=== PATIENT | male | born 1965 | race Caucasian/White ===

== ENCOUNTER 2018-03-07 09:59 | Day surgery (SDC) | payer BC, MEDICARE ==
[2018-03-05 10:32] VITALS: BMI 27.3
[~2018-03-07 09:59] MED LIST: DEXAMETHASONE SOD PHOSPHATE 10 MG/ML 1 ML VIAL IV ONE; LACTATED RINGERS 1,000 ML IV SCH; MORPHINE SULFATE 4 MG/0.8 ML SYRINGE (INJ) IV PRN; ONDANSETRON ODT 4 MG TAB PO ONE
[2018-03-07 11:30] VITALS: RESP 16; TEMP 97.9
[2018-03-07] MEDS ORDERED: LIDOCAINE 1% 20 ML VIAL (10MG/ML) FOR IV START INTRADERMA ONE (11:44)
[2018-03-07] MEDS ORDERED: PROPOFOL 10 MG/ML 20 ML VIAL IV ONE (12:06)
[2018-03-07] MEDS ORDERED: LIDOCAINE 1% INJ 10MG/ML (20 ML MDV) ONE (12:06)
--- NOTE | 2018-03-07 12:14 | P.GSHP ---
History of Present Illness H&P Date: 03/07/18 Chief Complaint: Screen colonoscopy, history of colon cancer This a 52-year-old male who presents today for colonoscopy. He's has history of previous colon cancer. He denies a significant GI complaints. Past Medical History Past Medical History: Cancer, Eye Disorder Additional Past Medical History / Comment(s): HX COLON CA@ AGE 45;SPINAL MENIGITIS 2000, LIGHTHEADED AT TIMES,HX ACUTE BRACHIAL PLEXIS NEURITIS-HURTS ALL OVER-EVERY JOINT- STATES LEGS ARE STARTING TO GET SMALLER & HARD TO WALK FAR -NEUROPATHY, History of Any Multi-Drug Resistant Organisms: None Reported Past Surgical History: Back Surgery, Bowel Resection Additional Past Surgical History / Comment(s): HAD BOWEL RESECTION AND AN ILEOSTOMY, THEN A REVERSAL DONE, COLONOSCOPIES Past Anesthesia/Blood Transfusion Reactions: No Reported Reaction Smoking Status: Current every day smoker - Past Family History Mother Family Medical History: Cancer Additional Family Medical History / Comment(s): OF STOMACH CA 2013 Father Family Medical History: Cancer Additional Family Medical History / Comment(s): PROSTATE CA Medications and Allergies Home Medications Medication Instructions Recorded Confirmed Type ALPRAZolam [Xanax] 0.5 mg PO BID PRN 07/30/15 03/05/18 History Gabapentin [Neurontin] 300 mg PO BID 07/30/15 03/05/18 History Multivitamins, Thera [Theragran] 1 each PO DAILY 07/30/15 03/05/18 History oxyCODONE-APAP 10-325MG [Percocet 1 each PO TID 07/30/15 03/05/18 History 10-325] Allergies Allergy/AdvReac Type Severity Reaction Status Date / Time No Known Allergies Allergy Verified 03/07/18 11:25 Surgical - Exam Vital Signs Temp Pulse Resp BP Pulse Ox 97.9 F 62 16 132/80 96 03/07/18 11:28 03/07/18 11:28 03/07/18 11:28 03/07/18 11:28 03/07/18 11:28 - General well developed, well nourished - Eyes PERRL - ENT normal pinna - Neck no masses - Respiratory normal expansion - Cardiovascular Rhythm: regular - Abdomen Abdomen: soft, non tender Assessment and Plan Assessment: History of colonic Cancer. We'll perform colonoscopy.
--- NOTE | 2018-03-07 12:25 | P.OP ---
Date of Procedure: 03/07/18 Preoperative Diagnosis: Screening colonoscopy History of colonic Cancer Postoperative Diagnosis: Normal colonoscopy status post low anterior section Procedure(s) Performed: Colonoscopy Anesthesia: MAC Surgeon: Fritz Anne Pathology: none sent Condition: stable Disposition: PACU Description of Procedure: PROCEDURE: The patient was placed on the endoscopy table in the lateral position. Digital rectal examination was performed which revealed no abnormalities. The prostate was symmetrical without nodules. Flexible colonoscope was then placed in the patient's anus and passed throughout the entire colon. The ileocecal valve was visualized. The cecum, ascending, transverse, descending and sigmoid colon were normal. The scope was then withdrawn and a colorectal anastomosis was visualized proximal me 8 cm from the verge. There is some mild stenosis of the anastomosis. There is known evidence of recurrent tumors. Scope was withdrawn for patient.
[2018-03-07 12:45] VITALS: BP 123/83; PULSE 57
== END 2018-03-07 13:08 | disposition home or self-care (01) ==
LOC: ORWHC2ENDO 09:59
PROVIDERS: ATTEND Surgery
DX: Z12.11 Encounter for screening for malignant neoplasm of colon (principal); G62.9 Polyneuropathy, unspecified; F17.210 Nicotine dependence, cigarettes, uncomplicated; Z90.49 Acquired absence of other specified parts of digestive tract; Z98.0 Intestinal bypass and anastomosis status; Z85.038 Personal history of other malignant neoplasm of large intestine; Z79.891 Long term (current) use of opiate analgesic; Z79.899 Other long term (current) drug therapy; Z93.2 Ileostomy status
CPT/HCPCS: J2001; J2704; G0105; 45378

== ENCOUNTER → 2019-02-08 | Outpatient (CLI) | payer MEDICARE ==
--- NOTE | 2019-02-08 14:09 | MR ---
MRI CERVICAL SPINE: CLINICAL HISTORY: Cervical region radiculopathy. Weakness for 6 months. TECHNIQUE: Multiplanar, multisequence imaging of the cervical spine is performed without and with IV contrast, 7.5 cc of gadolinium was given intravenously. COMPARISON: None. FINDINGS: Sagittal images of the cervical spine show the craniocervical junction to appear within nor mal limits. The cervical and upper thoracic spinal cord is normal in course, caliber, and signal. Th ere is grade 1 retrolisthesis of C5 on C6 measure approximately 4 mm from posterior vertebral body ma rgin. The vertebral body heights are normal. [id number] disc space narrowing C5-C6 level is pr esent. There is small hemangioma involving posterior T1 vertebra. No suspicious enhancement is seen. There is 1.6 cm mucous retention cyst or polyp in the inferior right maxillary sinus sagittal image 1 4. Axial images show the C2-C3 level to appear within normal limits. Axial images at C3-C4 level show uncovertebral facet spurring causing mild bilateral neural foraminal narrowing. Axial images at C4-C5 level shows uncovertebral facet spurring causing moderate right and mild left-s ided neural foraminal narrowing. Tiny central disc protrusion mildly effaces the anterior thecal sac on axial image 32. Axial images at C5-C6 level show spondylolisthesis with broad-based left paracentral disc protrusion effacing the anterior thecal sac and causing moderate to advanced bilateral neural foraminal narrowin g. Axial images at C6-C7 level shows central disc protrusion mildly effacing the anterior thecal sac, bi lateral neural foramina are patent. Axial images at C7-T1 level are felt within normal limits. Thyroid gland is felt unremarkable. IMPRESSION: Multilevel degenerative changes of cervical spine as detailed above, attention to C5-C6 l evel where spondylolisthesis is present and degenerative changes are most prominent.
== END | disposition home or self-care (01) ==
LOC: RADMRIMAIN 13:12
PROVIDERS: ATTEND Psychiatry & Neurology Neurology
DX: M47.22 Other spondylosis with radiculopathy, cervical region (principal); M43.12 Spondylolisthesis, cervical region
CPT/HCPCS: 72156; A9585

== ENCOUNTER → 2019-11-04 | Outpatient (CLI) | payer MEDICARE ==
--- NOTE | 2019-11-04 23:27 | MR ---
EXAMINATION TYPE: MR lumbar spine wo/w con DATE OF EXAM: 11/04/2019 COMPARISON: None HISTORY: LBP, RLE radic, difficulty walking, hx surgery 1996 CONTRAST: Standard multiplanar, multisequence MRI departmental protocol utilizing 7.5 mL intravenous Gadavist g adolinium contrast. Lumbar vertebra have normal alignment. There is some degenerative disc space narrowing at L4-5 L5-S1. There is posterior mild disc herniation from L2 to L5. There is narrowing of the neural foramina joshua aterally at L3-4 and L4-5 due to facet arthropathy and disc bulging. There is no compression fracture . There is left side L4 laminectomy defect. Sacroiliac joints appear intact. There is no lumbar paraspinal mass. Contrast images show some epidural enhancement involving the L4-5 disc. There is probably some signif icant epidural scarring at L4-5 at the posterior aspect of the L4-5 disc. IMPRESSION: Spondylotic changes with multilevel mild posterior disc herniations. This is larger at L4-5. Mild dewayne ral foraminal stenosis. No fracture. No significant spinal canal stenosis. There is moderate epidural scarring enhancement seen in the epidural tissues at the L4-5 disc.
== END | disposition home or self-care (01) ==
LOC: RADMRIMAIN 21:40
PROVIDERS: ATTEND Neurological Surgery
DX: M48.061 Spinal stenosis, lumbar region without neurogenic claudication (principal); M51.26 Other intervertebral disc displacement, lumbar region; M47.816 Spondylosis without myelopathy or radiculopathy, lumbar region; G96.19 Other disorders of meninges, not elsewhere classified
CPT/HCPCS: 72158; A9585

== ENCOUNTER → 2019-12-11 | Outpatient (CLI) | payer MEDICARE ==
--- NOTE | 2019-12-11 22:30 | MR ---
EXAMINATION TYPE: MR brain wo/w con DATE OF EXAM: 12/11/2019 COMPARISON: NONE HISTORY: 54-year-old male with dizziness and giddiness TECHNIQUE: Multiplanar, multisequence images of the brain and brainstem were acquired before and aft er administration of 7.5 mL IV Gadavist. Diffusion weighted imaging is performed. FINDINGS: No evidence for acute infarction, hemorrhage, midline shift shift, herniation, effacement of basal ci sterns, or extra-axial fluid collection. The ventricles and sulci are age-appropriate. There is a 9 mm cyst along the right paramedian region just in front of the anterior commissure exten ding into the right basal ganglia. No enhancing component is seen. Major intracranial flow voids are intact. T2/FLAIR weighted sequences show no white matter signal abnormality. There is a cystic-appearing, T2 bright and T1 dark, nonenhancing by 6 mm round lesion of the posterio r pituitary gland. Possible small 4 mm hypoenhancing portion of the anterior pituitary gland, referre d to postcontrast axial image 12 and postcontrast sagittal image 78. Otherwise, midline structures demonstrate normal morphology. The craniocervical junction is normal. Post contrast images demonstrate no other evidence of pathologic enhancement. Dural venous sinuses a re patent. Moderate mucosal thickening left ethmoid air cells and mild within the maxillary sinuses and right et hmoid air cells. There is also a 1.8 cm mucosal retention cyst floor of the right maxillary sinus. IMPRESSION: 1. A 9 mm cyst along the right paramedian region just in front of the anterior commissure extending i nto the right basal ganglia. The exact etiology is unclear. No internal complexity or enhancing compo nents. Possible small neuroglial or ependymal cyst. Six-month follow-up recommended to reassess. 2. 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 However, there is a po ssible 4 mm hypoenhancing lesion within the anterior pituitary. A pituitary microadenoma is difficult to exclude. Appropriate laboratory correlation is recommended. Pituitary MRI can provide more detail ed assessment. 3. Moderate chronic left ethmoid sinus disease and mild chronic maxillary and right ethmoid sinus dis ease. 4. No acute intracranial abnormality seen.
== END | disposition home or self-care (01) ==
LOC: RADMRIMAIN 13:47
PROVIDERS: ATTEND Family Medicine
DX: G93.0 Cerebral cysts (principal); E23.6 Other disorders of pituitary gland; J32.0 Chronic maxillary sinusitis; J32.2 Chronic ethmoidal sinusitis
CPT/HCPCS: 70553; A9585

== ENCOUNTER → 2020-01-20 | Outpatient (CLI) | payer MEDICARE ==
--- NOTE | 2020-01-20 21:03 | MR ---
EXAMINATION TYPE: MR thoracic spine wo con DATE OF EXAM: 01/20/2020 COMPARISON: Whole body CT October 23, 2013. HISTORY: Gait instability per order. History of back surgery with difficulty walking for a few years per patient. TECHNIQUE: Multiplanar, multisequence imaging of thoracic spine is performed without contrast FINDINGS: Sagittal T2, and images shows artifact from surgical hardware C5-C6 levels.. Spinal cord s hows normal course, caliber, and signal as it courses the thoracic spine. Vertebral body heights and alignment are satisfactory. Mild multilevel disc space narrowing mid to lower thoracic spine with mi ld to moderate multilevel anterior and lateral spurring. There is subcentimeter round lesion involvin g the posterior T8 vertebra sagittal image 8 presumed nonaggressive. There are posterior disc herniat ions effacing the anterior thecal sac at T6-T7 and T7-T8 level sagittal image 8 along with tiny poste rior disc herniations T10-T11, T11-T12, and T12-L1 level sagittal image 8. Small posterior hemangioma T1 vertebra sagittal image 7. Review of axial images shows left foraminal disc herniation causing asymmetric mild to moderate infer ior neural foraminal narrowing at T2-T3 level sagittal images 4 and 5. Similar finding noted T3-T4 le angela axial image 14 and T4-T5 level axial image 8. With prominent disc herniations are confirmed to T6 -T7 and T7-T8 levels on axial images effacing the bilateral anterolateral thecal sac. There are uncov ertebral facet degenerative changes and ligament flavum hypertrophy pacing posterior lateral thecal s ac bilaterally in the lower thoracic spine. Visualized thorax and upper abdomen show no additional schaffer spicious abnormality. IMPRESSION: Multilevel okgo-iq-[id number] degenerative changes as detailed above.
== END | disposition home or self-care (01) ==
LOC: RADMRIMAIN 19:41
PROVIDERS: ATTEND Neurological Surgery
DX: M47.814 Spondylosis without myelopathy or radiculopathy, thoracic region (principal)
CPT/HCPCS: 72146

== ENCOUNTER → 2020-10-19 | Outpatient (CLI) | payer MEDICARE ==
--- NOTE | 2020-10-20 08:32 | MR ---
EXAMINATION TYPE: MR liver wo/w con DATE OF EXAM: 10/19/2020 COMPARISON: Most recent CT August 23, 2013 HISTORY: LIVER DISEASE, history of colon cancer. CONTRAST: Standard multiplanar, multisequence MRI departmental protocol utilizing 7.5 mL intravenous Gadavis t gadolinium contrast. Imaging is performed of the abdomen focusing on the liver. FINDINGS: Liver: Liver remains overall normal in size. Stable 6 mm punctate thin-walled cyst posterior right he patic lobe axial image 19 series 601. There are roughly 3-4 additional subcentimeter thin-walled cyst s scattered throughout the liver. In the posterior right hepatic lobe. 9 mm round T2 hyperintense les ion seen breast series 701 image 39, dynamic postcontrast images show initial peripheral rim-type enh ancement with more central heterogeneous enhancement on delayed images. No surrounding ascites. Paten t portal vein. Patent hepatic veins draining into IVC. Gallbladder within normal limits. No biliary d ilatation. Other: Lung bases remain grossly clear. The spleen, pancreas, and both adrenal glands remain within n ormal limits. No concerning renal mass or hydronephrosis seen bilaterally. No suspicious small or lar ge bowel dilatation. Susceptibility artifact from metallic anterior left mid abdominal soft tissue fo reign body near skin surface noted axial image 1 series 404. No intra-abdominal ascites. No aortic an eurysm. Osseous structures are intact IMPRESSION: A few tiny subcentimeter thin-walled cysts scattered throughout the liver. There is 9 mm enhancing lesion posterior right hepatic lobe superior segment not clearly identified on 2013 CT, too small to further characterize, dynamic postcontrast imaging is not consistent with metastatic diseas e, favor benign hemangioma. Short-term contrast-enhanced liver protocol follow-up MRI in 6-12 months time is advised to reassess in high risk patient with history of colon cancer.
== END | disposition home or self-care (01) ==
LOC: RADMRIMAIN 12:49
PROVIDERS: ATTEND Family Medicine
DX: K76.89 Other specified diseases of liver (principal); Z85.038 Personal history of other malignant neoplasm of large intestine
CPT/HCPCS: 74183; A9585

== ENCOUNTER → 2021-01-29 | Outpatient (CLI) | payer MEDICARE ==
--- NOTE | 2021-01-29 15:36 | XR ---
EXAMINATION TYPE: XR skull complete DATE OF EXAM: 01/29/2021 COMPARISON: NONE HISTORY: Pre-MRI clearance. Possible metallic foreign body. TECHNIQUE: 4 views of the skull. FINDINGS: No suspicious metallic intracranial foreign body seen to prevent MRI. IMPRESSION: As above.
--- NOTE | 2021-01-30 03:57 | MR ---
EXAMINATION TYPE: MR cervical spine wo con DATE OF EXAM: 01/29/2021 COMPARISON: 02/08/2019 HISTORY: Can't walk, dizzy, electrical feeling, pain for 2 years down both arms to fingers. Multiplanar multiecho imaging of the cervical spine was performed with no contrast. Lumbar vertebra have normal alignment. There is anterior fusion surgery with metal artifact at C5-6. The disc spaces are fairly normal. There is no spinal stenosis. Cervical spinal cord appears normal. There is no edema. Brainstem appears intact. Facet joints are intact. There is no evidence of cervica l paraspinal mass. IMPRESSION: Anterior fusion surgery. No spinal stenosis or cervical disc herniation. No fracture. No complicating process seen. No adverse change compared to old exam.
== END ==
LOC: RADMRIMAIN 14:44
PROVIDERS: ATTEND Student in an Organized Health Care Education/Training Program
DX: Z98.1 Arthrodesis status (principal); S00.85XA Superficial foreign body of other part of head, initial encounter
CPT/HCPCS: 70260; 72141

== ENCOUNTER → 2021-02-09 | Outpatient (CLI) | payer MEDICARE ==
--- NOTE | 2021-02-10 14:24 | P.ARTDOP ---
Arterial Doppler LOWER EXTREMITY ARTERIAL DOPPLER: DATE OF SERVICE: 02/09/2021: Reason for study: Bilateral leg weakness. Doppler waveforms: Multiphasic bilaterally throughout. Pulse volume recording: []. Pressure gradients: None. Ankle-brachial indices: Greater than 1 bilaterally. Toe brachial indices: 0.68 on the right, 0.67 on the left Impression: Normal study.
== END | disposition home or self-care (01) ==
LOC: RADUSWWP 13:47
PROVIDERS: ATTEND Family Medicine
DX: M79.661 Pain in right lower leg (principal); M79.662 Pain in left lower leg
CPT/HCPCS: 93922

== ENCOUNTER → 2021-02-15 | Outpatient (CLI) | payer MEDICARE ==
--- NOTE | 2021-02-16 03:22 | MR ---
EXAMINATION TYPE: MR lumbar spine wo con DATE OF EXAM: 02/15/2021 COMPARISON: 11/04/2019 HISTORY: LBP, BLE radiculopathy, difficulty walking Multiplanar multiecho imaging of the lumbar spine was performed with no contrast. The lumbar vertebra have normal alignment. There is narrowing of the disc spaces at L4-5 and L5-S1. T here is moderate posterior disc herniation at L4-5 with disc herniation extending along the posterior aspect of L5 vertebral body. There is a posterior concentric mild disc herniation at L2-3. The lumba r neural foramina are fairly well-maintained. There is no compression fracture. There is some anterio r multilevel lumbar disc herniation from L2 to L5. The sacroiliac joints are intact. There is no para spinal mass. I see no focal bone destruction. IMPRESSION: Spondylotic changes. There is moderate posterior L4-5 lumbar disc herniation increased slightly lidia red to old exam with extruded disc material along the posterior L5 vertebral body. There is overall n ot a significant spinal stenosis. No fracture seen. L2-3 disc herniation unchanged.
== END | disposition home or self-care (01) ==
LOC: RADMRIMAIN 21:49
PROVIDERS: ATTEND Student in an Organized Health Care Education/Training Program
DX: M47.26 Other spondylosis with radiculopathy, lumbar region (principal); M51.16 Intervertebral disc disorders with radiculopathy, lumbar region
CPT/HCPCS: 72148

== ENCOUNTER → 2021-03-01 | Outpatient (CLI) | payer MEDICARE ==
--- NOTE | 2021-03-02 04:46 | MR ---
EXAMINATION TYPE: MR thoracic spine wo con DATE OF EXAM: 03/01/2021 COMPARISON: 01/20/2020 HISTORY: Difficulty walking, leg pain. Multiplanar multiecho imaging of the thoracic spine was performed without contrast. FINDINGS: Thoracic vertebra have normal alignment. There is mild spurring of the endplates anteriorly and poste riorly. There is developmentally adequate spinal canal. There is no evidence of spinal stenosis. Ther e is metal artifact from fusion surgery at C5-6. At T12-L1 on the right side there is posterior disc herniation and impingement on the lateral recess. There is developmentally adequate neural foramen. T here is no compression fracture. At T6-7 there is small posterior disc bulge on the left side. There is very slight increased signal on the T2 images within the thoracic spinal cord at the T6-7 le angela. There is no evidence of a mass. IMPRESSION: Posterior right side T12-L1 disc herniation without change. No fracture. Subtle increased signal in the cord at T6-7 seen on the sagittal images and not the axial images. It is not clear if this is a real finding. This is a change compared to old exam.
--- NOTE | 2021-03-02 04:52 | MR ---
EXAMINATION TYPE: MR brain wo con DATE OF EXAM: 03/01/2021 COMPARISON: 12/11/2019 HISTORY: Difficulty walking, leg pain. Multiplanar multiecho imaging of the brain was performed without contrast. FINDINGS: Ventricles have normal size. There is no mass effect nor midline shift. There is no sign of intracran ial hemorrhage. There is cerebral atrophy appropriate for age. The diffusion images show no evidence of an acute infarct. There is 9 mm rounded area of fluid signal adjacent to the frontal horn of the r ight lateral ventricle. This is smoothly marginated and consistent with a cyst. The brainstem is intact. Corpus callosum appears normal. Sella turcica appears normal. There is no ev idence of orbital mass. The cerebellum appears normal. There is no evidence of posterior fossa mass. Internal auditory canals appear intact. There is mild mucosal thickening in the ethmoid air cells. IMPRESSION: There is a small cyst adjacent to the frontal horn right lateral ventricle and anterior commissure wi thout change compared to old exam. No evidence of infarct. There is improvement in the sinusitis compared to old exam. No posterior fossa abnormality.
== END | disposition home or self-care (01) ==
LOC: RADMRIMAIN 20:08
PROVIDERS: ATTEND Neurological Surgery
DX: M51.25 Other intervertebral disc displacement, thoracolumbar region (principal); G93.0 Cerebral cysts
CPT/HCPCS: 70551; 72146

== ENCOUNTER 2021-12-17 20:25 | Emergency (ER) | payer MEDICARE ==
[2021-12-17] MEDS ORDERED: MORPHINE SULFATE 4 MG/ML SYRINGE IM STA ×3 (20:34→22:19)
--- NOTE | 2021-12-17 20:35 | ED ---
Lower Extremity Injury HPI - General Stated Complaint: R ankle injury Time Seen by Provider: 12/17/21 20:31 Source: RN notes reviewed Mode of arrival: EMS - History of Present Illness Initial Comments: This is a pleasant 48-year-old male presents to emergency department complaining of right ankle pain. Patient states he was walking outside to go to dinner and slipped on ice. Patient twisted his ankle in some fashion. Complaining of pain to lateral aspect ankle which radiates into the lower leg. No head or neck injury. 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 No headache, no fever or chills, no changes in vision or hearing, no sore throat or difficulty with speech, no neck pain, no chest pain or shortness of breath, no abdominal pain, no nausea or vomiting, no changes in urination or bowel movements, no numbness or tingling, no extremity pain, no skin rashes or lesions. MD Complaint: ankle injury - Related Data Home Medications Medication Instructions Recorded Confirmed ALPRAZolam [Xanax] 0.5 mg PO HS 07/30/15 12/17/21 oxyCODONE-APAP 10-325MG [Percocet 1 tab PO TID 07/30/15 12/17/21 10-325] Pregabalin [Lyrica] 300 mg PO DAILY 12/17/21 12/17/21 Temazepam [Restoril] 15 mg PO HS PRN 12/17/21 12/17/21 Allergies Allergy/AdvReac Type Severity Reaction Status Date / Time No Known Allergies Allergy Verified 12/17/21 20:40 Review of Systems ROS Statement: Those systems with pertinent positive or pertinent negative responses have been documented in the HPI. ROS Other: All systems not noted in ROS Statement are negative. Past Medical History Past Medical History: Cancer, Eye Disorder Additional Past Medical History / Comment(s): HX COLON CA@ AGE 45;SPINAL MENIGI TIS 2000, LIGHTHEADED AT TIMES,HX ACUTE BRACHIAL PLEXIS NEURITIS-HURTS ALL OVER- EVERY JOINT- STATES LEGS ARE STARTING TO GET SMALLER & HARD TO WALK FAR- NEUROPATHY, History of Any Multi-Drug Resistant Organisms: None Reported Past Surgical History: Back Surgery, Bowel Resection Additional Past Surgical History / Comment(s): HAD BOWEL RESECTION AND AN ILEOSTOMY, THEN A REVERSAL DONE, COLONOSCOPIES Past Anesthesia/Blood Transfusion Reactions: No Reported Reaction Past Psychological History: Anxiety Past Alcohol Use History: Rare Additional Past Alcohol Use History / Comment(s): SMOKER SINCE AGE 28(1992)- 2PPD Past Drug Use History: None Reported - Past Family History Mother Family Medical History: Cancer Additional Family Medical History / Comment(s): OF STOMACH CA 2013 Father Family Medical History: Cancer Additional Family Medical History / Comment(s): PROSTATE CA General Exam General appearance: alert, in distress Head exam: Present: atraumatic, normocephalic, normal inspection Eye exam: Present: normal appearance, PERRL, EOMI. Absent: scleral icterus, conjunctival injection, periorbital swelling ENT exam: Present: normal exam, mucous membranes moist Neck exam: Present: normal inspection. Absent: tenderness, meningismus, lymphadenopathy Respiratory exam: Present: normal lung sounds bilaterally. Absent: respiratory distress, wheezes, rales, rhonchi, stridor Cardiovascular Exam: Present: regular rate, normal rhythm, normal heart sounds. Absent: systolic murmur, diastolic murmur, rubs, gallop, clicks GI/Abdominal exam: Present: soft, normal bowel sounds. Absent: distended, tenderness, guarding, rebound, rigid Extremities exam: Present: normal inspection, tenderness, normal capillary refill Right Knee exam: Present: normal inspection, full ROM. Absent: tenderness Lower Leg exam: Present: tenderness. Absent: swelling, abrasion Ankle exam: Present: tenderness, swelling. Absent: normal inspection, full ROM, abrasion, laceration, ecchymosis, deformity Foot/Toe exam: Present: normal inspection, full ROM. Absent: tenderness, swelling, abrasion, laceration, deformity, crepitus, dislocation, erythema, amputation, puncture wound, foreign body, nail avulsion Neurovascular tendon exam: Present: no vascular compromise. Absent: pulse deficit, abnormal cap refill, motor deficit, sensory deficit, tendon deficit, pallor Gait: unable to bear weight Back exam: Present: normal inspection Neurological exam: Present: alert, oriented X3, CN II-XII intact Psychiatric exam: Present: normal affect, normal mood Skin exam: Present: warm, dry, intact, normal color. Absent: rash Course Vital Signs 12/17/21 12/17/21 20:37 22:28 Temperature 98.2 F Pulse Rate 66 88 Respiratory 18 18 Rate Blood Pressure 194/100 168/91 O2 Sat by Pulse 100 97 Oximetry - Reevaluation(s) Reevaluation #1: 12/17/21 22:40 Medical record is reviewed Symptoms are improved here in the emergency department Patient is informed of results and questions answered Patient in no distress Neuro Vasser status intact Case discussed with orthopedics Patient is not narcotic darlene and requires more pain medication prior to splint application. Procedures - Orthopedic Splinting/Casting Injury #1 Side: right Lower Extremity Injury Location: long leg, ankle Lower Extremity Immobilizer: posterior splint, stirrup splint, David wrap Other Orthopedic Equipment: crutches Additional Comments: Neurovascular status intact pre-and post-application. Medical Decision Making - Medical Decision Making Case discussed in detail with Dr. Landin [facility]. Patient be splinted and will follow up on Monday or Monday. The case was discussed in detail with ED attending physician. Presentation, findings, treatment plan discussed in detail. Counseled the patient on signs and symptoms of compartment syndrome. 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 Patient had good vascular status. Post-application. Patient's neurological and sensory status was at baseline. Disposition Clinical Impression: Closed traumatic nondisplaced fracture of distal end of right tibia, Traumatic closed nondisplaced fracture of distal end of right fibula Disposition: HOME SELF-CARE Condition: Stable Instructions (If sedation given, give patient instructions): Ankle Fracture (ED), Crutch Instructions (ED), Splint Care (ED) Additional Instructions: Elevated leg whenever possible. Apply ice 20 minutes on and off. Do not get the splinting material wet. No weight bearing. Use crutches as directed. Call the orthopedic office at 8 AM Monday morning. Follow-up with your regular physician as directed. Return to the ER immediately if any symptoms worsen, new symptoms arise, or any other problems develop. Is patient prescribed a controlled substance at d/c from ED?: No Referrals: Hernando Landin DO [Doctor of Osteopathic Medicine] - 12/20/21 8:00 am Time of Disposition: 23:28
[2021-12-17 20:40] VITALS: RESP 18; TEMP 98.2
--- NOTE | 2021-12-17 21:59 | XR ---
EXAMINATION TYPE: XR tibia fibula RT DATE OF EXAM: 12/17/2021 COMPARISON: NONE HISTORY: Pain TECHNIQUE: 4 views FINDINGS: There is spiral fracture distal shaft of the tibia. There is no significant displacement. T here is comminution. There is large fracture the posterior malleolus. There is nondisplaced spiral fr acture distal fibula. IMPRESSION: Acute fractures distal tibia and fibula as above including large fractured posterior mall eolus. No dislocation.
--- NOTE | 2021-12-17 22:00 | XR ---
EXAMINATION TYPE: XR foot limited RT DATE OF EXAM: 12/17/2021 COMPARISON: NONE HISTORY: Ankle pain leg pain and foot pain TECHNIQUE: 2 views FINDINGS: Metatarsals are intact. The toes appear intact. Hindfoot is intact. Fractures of distal tib ia and fibula are noted described in the tibia x-ray report. IMPRESSION: No acute abnormality of the right foot.
[2021-12-17] MEDS ORDERED: KETOROLAC 15 MG/ML 1 ML VIAL IM STA (22:19)
[2021-12-17 22:29] VITALS: PULSE 88
[2021-12-17 23:37] VITALS: BP 136/76
== END 2021-12-18 | disposition home or self-care (01) ==
LOC: EC 20:25
DX: S82.301A Unspecified fracture of lower end of right tibia, initial encounter for closed fracture (principal); S82.831A Other fracture of upper and lower end of right fibula, initial encounter for closed fracture; F41.9 Anxiety disorder, unspecified; Z79.899 Other long term (current) drug therapy; W01.0XXA Fall on same level from slipping, tripping and stumbling without subsequent striking against object, initial encounter; X50.1XXA Overexertion from prolonged static or awkward postures, initial encounter; Y93.01 Activity, walking, marching and hiking
CPT/HCPCS: 73590; 73620; 29505; 99284; 96372 ×3; J2270; J1885

== ENCOUNTER → 2021-12-22 | Outpatient (CLI) | payer MEDICARE ==
--- NOTE | 2021-12-22 09:40 | CT ---
EXAMINATION TYPE: CT ankle RT wo con DATE OF EXAM: 12/22/2021 COMPARISON: Radiograph 12/17/2021 HISTORY: 56-year-old male M79.661, right lower fracture. TECHNIQUE: Contiguous axial scanning of the right ankle without IV contrast. Coronal and sagittal rec onstructions performed. 3-D reconstructions generated on a dedicated independent workstation. CT DLP: 327.80 mGycm Automated exposure control for dose reduction was used. FINDINGS: Overlying plaster splint. There is an oblique fracture of the distal tibial shaft with 8 mm of lateral displacement and 4 mm of anterior displacement. Nondisplaced, mildly comminuted, vertical fracture of the posterior malleolus. There is a 5 mm AP by 1.3 cm wide area of articular surface here minimally depressed by 1 mm, refer to sagittal image 27. There is an oblique fracture of the distal fibula with 6 mm of posterior displacement. Tiny 3 mm bone fragment displaced to the lateral clear space. Subtalar joint is aligned. IMPRESSION: 1. OBLIQUE FRACTURE DISTAL TIBIAL SHAFT WITH 8 MM OF LATERAL AND 4 MM OF ANTERIOR DISPLACEMENT. 2. NONDISPLACED VERTICAL FRACTURE POSTERIOR MALLEOLUS. MINIMAL COMMINUTION AT THE MARGIN OF THE FRACT URE WHERE THERE IS A 5 MM (AP) BY 1.3 CM (WIDE) AREA OF ARTICULAR SURFACE DEPRESSION BY 1 MM. REFER T O SAGITTAL IMAGE 27. 3. OBLIQUE FRACTURE DISTAL FIBULA WITH 6 MM OF POSTERIOR DISPLACEMENT.
== END | disposition home or self-care (01) ==
LOC: RADCTMAIN 07:50
PROVIDERS: ATTEND Orthopaedic Surgery
DX: S82.231A Displaced oblique fracture of shaft of right tibia, initial encounter for closed fracture (principal); S82.64XA Nondisplaced fracture of lateral malleolus of right fibula, initial encounter for closed fracture; S82.431A Displaced oblique fracture of shaft of right fibula, initial encounter for closed fracture; X58.XXXA Exposure to other specified factors, initial encounter

== ENCOUNTER 2021-12-27 07:26 | Inpatient (IN) | payer MEDICARE ==
[2021-12-24 13:30] VITALS: BMI 27.3
[~2021-12-27 07:26] MED LIST changes: -DEXAMETHASONE SOD PHOSPHATE 10 MG/ML 1 ML VIAL IV ONE; +DEXAMETHASONE SOD PHOSPHATE 4 MG/ML 1 ML VIAL IV ONE; +HYDROmorphone 0.5 MG/0.5 ML SYRINGE IVP PRN; -LACTATED RINGERS 1,000 ML IV SCH; +MIDAZOLAM 2 MG/2 ML VIAL IV PRN; -MORPHINE SULFATE 4 MG/0.8 ML SYRINGE (INJ) IV PRN; +ONDANSETRON 4 MG/2 ML VIAL IVP ONE; -ONDANSETRON ODT 4 MG TAB PO ONE; +SCOPOLAMINE 1.5MG/72HR PATCH TRANSDERM ONE
[2021-12-27] MEDS: LACTATED RINGERS 1,000 ML IV SCH ×2 (09:11→21:00)
[2021-12-27 09:16] LABS: HCT 40.8 % (39.0-53.0); HGB 13.7 gm/dL (13.0-17.5); MCH 30.8 pg (25.0-35.0); MCHC 33.5 g/dL (31.0-37.0); Mean Platelet Volume 7.6; Platelet Count 286 k/uL (150-450); RBC 4.44 m/uL (4.30-5.90); RDW 12.4 % (11.5-15.5); WBC 9.8 k/uL (3.8-10.6)
[2021-12-27] MEDS ORDERED: fentaNYL (PF) 50 MCG/ML 2 ML AMP IVP ONE (16:14)
[2021-12-27] MEDS ORDERED: MIDAZOLAM 2 MG/2 ML VIAL IVP ONE (16:14)
[2021-12-27] MEDS ORDERED: ONDANSETRON 4 MG/2 ML VIAL IVP ONE (16:20)
[2021-12-27] MEDS ORDERED: DEXAMETHASONE SOD PHOSPHATE 4 MG/ML 1 ML VIAL IVP ONE (16:20)
[2021-12-27] MEDS ORDERED: MIDAZOLAM 2 MG/2 ML VIAL ONE (16:45)
[2021-12-27] MEDS ORDERED: SUCCINYLCHOLINE CHLORIDE 100 MG/5 ML SYR IV ONE (16:45)
[2021-12-27] MEDS ORDERED: LIDOCAINE 1% INJ 10MG/ML (20 ML MDV) ONE (16:45)
[2021-12-27] MEDS ORDERED: HYDROmorphone (PF) 1 MG/ML ONE (16:45)
[2021-12-27] MEDS ORDERED: fentaNYL (PF) 50 MCG/ML 2 ML AMP ONE (16:45)
[2021-12-27] MEDS ORDERED: GLYCOPYRROLATE 0.2 MG/ML 2 ML VIAL ONE (16:45)
[2021-12-27] MEDS ORDERED: SODIUM CHLORIDE 0.9% (PF) 10 ML VIAL ONE (16:45)
[2021-12-27] MEDS ORDERED: PROPOFOL 10 MG/ML 20 ML VIAL IV ONE (16:45)
[2021-12-27] MEDS ORDERED: ROPIVACAINE 5 MG/ML 30 ML VIAL ONE (16:45)
[2021-12-27] MEDS ORDERED: ROCURONIUM 10 MG/ML (5 ML VIAL) IV ONE (16:45)
[2021-12-27] MEDS ORDERED: NEOSTIGMINE 1 MG/ML 10 ML VIAL ONE (16:45)
[2021-12-27] MEDS ORDERED: LACTATED RINGERS 1,000 ML IV ONE (17:54)
[2021-12-27] MEDS ORDERED: HYDROcodone/APAP 5-325MG 1 EACH TAB PO PRN ×2 (19:32)
[2021-12-27] MEDS ORDERED: HYDROmorphone 1 MG/ML 1 ML SYRINGE IVP PRN ×2 (19:32)
[2021-12-27] MEDS ORDERED: ONDANSETRON 4 MG/2 ML VIAL IVP PRN (19:32)
[2021-12-27] MEDS ORDERED: HYDROmorphone 0.2 MG/1 ML SYRINGE IVP PRN (19:32)
[2021-12-27] MEDS ORDERED: NALOXONE 0.4 MG/ML 1 ML VIAL IV PRN (19:32)
--- NOTE | 2021-12-27 19:34 | P.ANPRN ---
Procedure Note - Anesthesia - Nerve Block Performed Right Adductor Canal Time Out Performed: Yes (16:14) Date of Procedure: 12/27/21 Procedure Start Time: 16:14 Procedure Stop Time: 16:23 Location of Patient: PreOp Indication: Acute Post-Operative Pain, Requested by Surgeon (Dr Brownlee) Sedation Type: Sedate with meaningful contact maintained Preparation: Sterile Prep Position: Supine Catheter: None Needle Types: Pajunk Needle Gauge: 21 Ultrasound used to visualize needle placement: Yes Ultrasound used to observe medication spread: Yes Injectate: 0.5% Ropivacaine (see comment for volume) (15cc) Blood Aspirated: No Pain Paresthesia on Injection Noted: No Resistance on Injection: Normal Image Stored and Saved: Yes Events: Uneventful and Well Tolerated
--- NOTE | 2021-12-27 19:36 | P.ANPRN ---
Procedure Note - Anesthesia - Nerve Block Performed Right Popliteal Time Out Performed: Yes Date of Procedure: 12/27/21 Procedure Start Time: 16:28 Procedure Stop Time: 16:38 Location of Patient: PreOp Indication: Acute Post-Operative Pain, Requested by Surgeon (Dr Brownlee) Sedation Type: Sedate with meaningful contact maintained Preparation: Sterile Prep Position: Left Lateral Catheter: None Needle Types: Pajunk Needle Gauge: 21 Ultrasound used to visualize needle placement: Yes Ultrasound used to observe medication spread: Yes Injectate: 0.5% Ropivacaine (see comment for volume) (15cc + 5cc PF Normal saline) Blood Aspirated: No Pain Paresthesia on Injection Noted: No Resistance on Injection: Normal Image Stored and Saved: Yes Events: Uneventful and Well Tolerated
--- NOTE | 2021-12-27 19:48 | P.OP ---
Date of Procedure: 12/27/21 Preoperative Diagnosis: 1. Right distal third tibia fracture 2. Right posterior malleolus ankle fracture 3. Right lateral malleolus fracture 4. Current every day cigarette smoker (2 packs of cigarettes per day) 5. 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 Operative fixation of right distal tibial shaft fracture with open reduction and internal fixation 2. Open reduction and internal fixation of right lateral malleolus fracture 3. Nonoperative management right posterior malleolus fracture 4. Application of short leg splint by physician, right ankle Anesthesia: FRANK Surgeon: Maurice Brownlee Fiction And Nonfiction Writer Prose #1: Katerine Lobo Estimated Blood Loss (ml): 20 IV fluids (ml): 1,200 Pathology: none sent Condition: stable Disposition: PACU Indications for Procedure: The patient is a very pleasant 56-year-old male with multiple medical problems including being a 2 pack per day cigarette smoker and having peripheral neuropathy secondary to chemotherapy for colon cancer who sustained a closed right tibia fracture when he slipped on the ice several weeks ago. He was seen in the emergency department and placed into a splint. He was referred to our office for management. I met with the patient preoperatively discussed surgical treatment. I recommended open reduction internal fixation. The patient understands that he is a high risk of having Occasions due to his heavy cigarette smoking and neuropathy. I encouraged him to quit smoking. We discussed potential risks and competitions of surgery including but certainly not limited to risks from anesthesia, superficial infection, deep infection, delayed wound healing, nonunion, malunion, malreduction, symptomatically hardware, chronic pain, and inability to regain preinjury level of function, dissatisfaction with surgery, need for further surgery, DVT, PE, other medical complications, and possibly loss of life or limb. Again the patient understands that he is much higher risk having a complication due to his 2 pack per day cigarette smoking. Description of Procedure: The patient was identified in preoperative holding and the correct right ankle was marked with my initials. I reviewed the consent form with the patient and all of his questions were answered. After he was given a a block the splint was taken down and there was wrinkling of the skin. He was then brought back to the operating room. He was positioned on the OR table where general anesthetic and preoperative antibiotics were given. A tourniquet was applied to the proximal aspect of the right leg. All bony prominences were well-padded. A bump was placed under the right buttock internally rotating the hip and a ramp was placed under the right leg to facilitate imaging. The left leg was secured to the table with foam and tape. The right leg was then prepped and draped in the standard sterile fashion. Prior to starting surgery timeout was performed identifying the correct patient, operative extremity, and procedure. The patient's leg was then elevated, exsanguinated with an Esmarch bandage, and the tourniquet was inflated to 250 mmHg. I began by outlining an anterolateral incision to the distal tibia area and skin incision was made over the distal fragment of the distal tibia in line with the fourth ray. Skin incision was made with a scalpel and dissection was carried down carefully to subcutaneous tissue with tenotomy scissors. The superficial peroneal nerve was identified and carefully retracted. The extensor retinaculum was incised. The anterior compartment musculature was then retracted medially. The fracture was carefully exposed. A stab incision was made directly medially and a large [id number] clamp was placed followed by a lobster claw. The fracture was anatomically reduced and I verified the reduction both visually and with fluoroscopy. Once the fracture was reduced a percutaneous lag screw was placed from medial to lateral across the fracture generating excellent compression. I then used an elevator to create a track along the anterolateral face of the tibia and a precontoured anterolateral plate was sized and placed in the wound. Its position was verified with fluoroscopy and provisionally held with K wires. 4 nonlocking 3.5 mm screws were placed distally. 3 nonlocking 3.5 mm screws were placed proximally. Reduction and placement of the hardware was verified on orthogonal views with fluoroscopy. Attention was then turned to the distal fibula. A posterior lateral approach was marked out over the distal fibula. The skin bridge was measured to be 7 cm. Skin incision was made with a scalpel. Dissection was carried down carefully through subcutaneous tissue. The interval between the distal fibula and peroneal tendons was entered. The fracture site was identified, carefully debrided, and clamped. A 6-hole one third tubular plate was placed posterolaterally on the distal fibula. 2 nonlocking 3.5 mm screws were placed proximally. A single nonlocking 3.5 mm screws placed distally. A 2.7 mm lag screw was applied to the plate across the fracture from distal to proximal. Final fluoroscopic images were taken. A mortise and true lateral were taken showing adequate reduction of the fracture and placement of hardware. A manual external rotation stress x-ray was performed and showed no widening of the medial clear space or incisura. I interpreted this as a stable syndesmotic complex not requiring fixation. All wounds were thoroughly irrigated and closed in layers with 2-0 Vicryl for the deep layer, 3-0 Monocryl for superficial subcutaneous layer, and 3-0 nylon Allgower modification of the Donati stitch for the skin. All stab incisions were closed oozing 3-0 nylon in horizontal mattress sutures. Wound stretchy Steri-Strips were applied. Sterile dressing consisting of Betadine soaked Adaptic and 4 x 4's were applied followed by an overwrap with a labral. A well- padded bulky Reich splint was placed with the ankle neutral. Katerine Lobo PA-C was required as a skilled human resources assistant due to the complexity of the surgery for positioning, retraction, placement of hardware, closure of wound, and application of splint. Plan: The patient is going to be admitted for pain control. Due to his history of oxycodone use we will use a PACKING MACHINE OPERATOR and consult the pain service. He will need 2 doses of postoperative antibiotics. Internal medicine for perioperative medical management. DVT prophylaxis with aspirin 81 mg twice a day. Bone health labs pending. Smoking cessation.
[2021-12-27] MEDS ORDERED: oxyCODONE-APAP 10-325MG 1 EACH TAB PO PRN (19:54)
--- NOTE | 2021-12-27 20:52 | XR ---
EXAMINATION TYPE: XR tibia fibula RT DATE OF EXAM: 12/27/2021 COMPARISON: NONE HISTORY: Ankle surgery TECHNIQUE: 8 views FINDINGS: Fluoroscopic AP views were obtained. There was 1 minute and 59 seconds of fluoroscopy time recorded. There is placement of plates and screws fixing the fractures of the distal tibia and fibula in anatomic position. IMPRESSION: Satisfactory internal anatomic fixation of the tibia and fibular fractures.
[2021-12-27] MEDS: SENNOSIDES-DOCUSATE SODIUM 1 EACH TAB PO SCH (20:59)
[2021-12-27] MEDS: ASPIRIN 81 MG PO SCH (20:59)
[2021-12-27] MEDS: HYDROmorphone PCA 10 MG/50 ML BAG IV PRN (22:16)
[2021-12-28] MEDS ORDERED: TEMAZEPAM 15 MG CAP PO PRN (02:05)
--- NOTE | 2021-12-28 02:07 | P.CONS ---
History of Present Illness - Reason for Consult Consult date: 12/28/21 - History of Present Illness The patient is a 56-year-old male with a PMH of depression, anxiety, chronic lower extremity weakness and neuropathy (unclear etiology, extensive workup performed at [facility] as per patient), and hypertension (diet-controlled) who was admitted to the hospital for a planned repair of a right tibial fracture. The patient had slipped on ice and sustained an injury on 12/17/21 at which time he was brought to the hospital where he was diagnosed with a tibial fracture. During this visit, the patient was seen postoperatively on the surgical unit. He reported ongoing pain at the site of surgery, rated at 6 out of 10. He denied any additional complaints. Denied experiencing chest discomfort, shortness of breath, fever, chills, cough, nausea, vomiting, abdominal, diarrhea. Review of systems: Pertinent positives and negatives as discussed in HPI, a complete review of systems was performed and all other systems are negative. Physical examination: General: non toxic, no distress, appears at stated age, normal weight Derm: no unusual rashes/lesions no unusual ecchymoses, warm, dry Head: atraumatic, normocephalic, symmetric Eyes: EOMI, no lid lag, anicteric sclera, pupils equal round reactive to light ENT: Nose and ears atraumatic, no thrush, no pharyngeal erythema Neck: No thyromegaly, no cervical lymphadenopathy, trachea midline, supple Mouth: no lip lesion, mucus membranes moist Cardiovascular: S1S2 reg, no murmur, positive posterior tibial pulse bilateral, no edema, capillary refill less than 2 seconds Lungs: CTA bilateral, no rhonchi, no rales , no accessory muscle use Abdominal: soft, nontender to palpation, no guarding, no appreciable organomegaly, normal bowel sounds Ext: no gross muscle atrophy, muscle strength 5 out of 5 bilateral upper extremities and strength 3 out of 5 of left lower extremity, right lower extremity postoperative with David bandage noted, no contractures, Neuro: CN II-XI grossly intact, light touch intact all 4 extremities, finger to nose within normal limits, Psych: Alert, oriented, appropriate affect Assessment/plan Chronic conditions: Depression, anxiety, peripheral neuropathy -Continue with home meds Right tibial fracture repair with ORIF -Defer management including pain control to the surgery service Past Medical History Past Medical History: Cancer, Eye Disorder Additional Past Medical History / Comment(s): fx rt lower leg-cast on,"I have been having balance problems thats why I fell", HX COLON CA@ AGE 45;SPINAL MENIGITIS 1999, LIGHTHEADED AT TIMES,HX ACUTE BRACHIAL PLEXIS NEURITIS-HURTS ALL OVER-EVERY JOINT- STATES LEGS ARE STARTING TO GET SMALLER & HARD TO WALK FAR-NEUROPATHY-"my legs give out on me",steroid injection to back Nov 2021 History of Any Multi-Drug Resistant Organisms: None Reported Past Surgical History: Back Surgery, Bowel Resection Additional Past Surgical History / Comment(s): HAD BOWEL RESECTION AND AN ILEOSTOMY, THEN A REVERSAL DONE, COLONOSCOPIES,pain procedures,neck procedure Past Anesthesia/Blood Transfusion Reactions: No Reported Reaction Past Psychological History: Anxiety Smoking Status: Current every day smoker Past Alcohol Use History: Rare Additional Past Alcohol Use History / Comment(s): SMOKER SINCE AGE 28(1992)- up to 2 PPD Past Drug Use History: None Reported - Past Family History Mother Family Medical History: Cancer Additional Family Medical History / Comment(s): OF STOMACH CA 2013 Father Family Medical History: Cancer Additional Family Medical History / Comment(s): PROSTATE CA Medications and Allergies Home Medications Medication Instructions Recorded Confirmed Type ALPRAZolam [Xanax] 0.5 mg PO HS 07/30/15 12/24/21 History oxyCODONE-APAP 10-325MG [Percocet 1 tab PO TID 07/30/15 12/24/21 History 10-325] Pregabalin [Lyrica] 300 mg PO DAILY PRN 12/17/21 12/24/21 History Temazepam [Restoril] 15 mg PO HS PRN 12/17/21 12/24/21 History Allergies Allergy/AdvReac Type Severity Reaction Status Date / Time No Known Allergies Allergy Verified 12/27/21 08:47 Physical Exam Vitals: Vital Signs Temp Pulse Pulse Resp BP Pulse Ox 12/27/21 22:15 68 146/83 97 12/27/21 22:00 77 135/89 95 12/27/21 21:30 77 137/85 94 L 12/27/21 21:15 82 165/92 96 12/27/21 21:00 61 152/85 95 12/27/21 20:45 75 142/82 96 12/27/21 20:10 78 16 124/58 98 12/27/21 19:58 77 18 124/58 97 12/27/21 19:43 63 16 115/57 99 12/27/21 19:28 96.9 F L 59 L 14 122/62 99 12/27/21 16:45 59 L 16 116/73 95 12/27/21 08:53 97.8 F 69 16 136/64 95 Intake and Output 12/27/21 12/27/21 12/28/21 14:59 22:59 06:59 Intake Total 300 1200 Output Total 50 Balance 300 1150 Intake: IV 300 1200 Output: Estimated Blood Loss 50 Other: Weight 81.647 kg Results CBC & Chem 7: 12/27/21 09:05
[2021-12-28 02:48] LABS: Basophils # (A) 0.05 X 10*3/uL (0.00-0.10); Basophils % (A) 0.4 %; Eosinophils # (A) 0.01 X 10*3/uL (0.04-0.35); Eosinophils % (A) 0.1 %; HCT 47.3 % (39.6-50.0); Immature Grans, Automated 0.5 %; Lymphocytes # (A) 0.75 X 10*3/uL (0.90-5.00); Lymphocytes % (A) 5.7 %; MCH 29.6 pg (27.0-32.0); MCHC 31.7 g/dL (32.0-37.0); MCV 93.3 fL (80.0-97.0); Mean Platelet Volume 10.7 fL (9.5-12.2); Monocytes # (A) 0.23 X 10*3/uL (0.20-1.00); Monocytes % (A) 1.7 %; NRBC Per 100 WBC 0 /100 WBCS (0.0-0.0); Neutrophils # (A) 12.15 X 10*3/uL (1.80-7.70); Neutrophils % (A) 91.6 %; Platelet Count 280 X 10*3/uL (140-440); RBC 5.07 X 10*6/uL (4.40-5.60); RDW 12.7 % (11.5-14.5); WBC 13.26 X 10*3/uL (4.50-10.00)
[2021-12-28] MEDS: LACTATED RINGERS 1,000 ML IV SCH ×3 (04:50→15:20)
[2021-12-28] MEDS ORDERED: PREGABALIN 100 MG CAP PO PRN (06:00)
[2021-12-28] MEDS: oxyCODONE-APAP 10-325MG 1 EACH TAB PO PRN ×3 (07:19→22:33)
[2021-12-28] MEDS: hydrOXYzine pamoate 25 MG CAP PO PRN ×3 (07:21→22:33)
[2021-12-28] MEDS: HYDROmorphone PCA 10 MG/50 ML BAG IV PRN ×2 (08:09→17:41)
[2021-12-28] MEDS: ASPIRIN 81 MG PO SCH ×2 (08:29→20:36)
--- NOTE | 2021-12-28 09:49 | FL ---
EXAMINATION TYPE: FL guidance operating room DATE OF EXAM: 12/27/2021 HISTORY: Fluoroscopy time 1 minute and 59 seconds of fluoroscopy provided. IMPRESSION: 1. Fluoroscopy time.
--- NOTE | 2021-12-28 10:10 | P.PN ---
Subjective Progress Note Date: 12/28/21 This patient is a 56- year old male who is status-post ORIF right distal tibial shaft fracture and right lateral malleolus fracture on 12/27/21. today is postoperative day #1. The patient is seen and examined bedside. He is currently up to the bedside chair. He states his pain is well controlled all night, although he is experiencing increased pain at this time as he recently was working with physical therapy. Patient is receiving oxycodone and a Dilaudid [employer] SUPERVISOR for pain control. Patient takes Percocet 10/325mg TID as a home medication. He is tolerating his diet well. He is voiding without issue. There are no additional complaints or concerns at this time. Vital signs stable. Objective - Vital Signs Vital signs: Vital Signs Temp 98.1 F 12/28/21 07:26 Pulse 74 12/28/21 07:26 Resp 18 12/28/21 07:26 BP 151/88 12/28/21 07:26 Pulse Ox 92 L 12/28/21 07:26 Intake & Output 12/27/21 12/28/21 12/28/21 18:59 06:59 18:59 Intake Total 1350 150 Output Total 350 Balance 1350 -200 Weight 81.647 kg Intake: IV 1350 150 Output: Urine 300 Estimated Blood Loss 50 - Exam On examination, patient is sitting up in the bedside chair. He is alert and oriented 3. On inspection of the right lower extremity, there is a clean, dry, intact bulky Reich splint in place. The visible portion of the toes are warm and well perfused with brisk capillary refill distally. There is no pain with passive anstj-eg-mnycef of the toes. Patient is able to wiggle toes appropriately, per nursing. Although during my exam patient states he is unable to move toes. - Labs CBC & Chem 7: 12/27/21 21:47 Labs: Abnormal Lab Results - Last 24 Hours (Table) 12/27/21 12/27/21 Range/Units 21:47 21:47 WBC 13.26 H (4.50-10.00) X 10*3/uL MCHC 31.7 L (32.0-37.0) g/dL Immature Gran # 0.07 H (0.00-0.04) X 10*3/uL Neutrophils # 12.15 H (1.80-7.70) X 10*3/uL Lymphocytes # 0.75 L (0.90-5.00) X 10*3/uL Eosinophils # 0.01 L (0.04-0.35) X 10*3/uL Vitamin D 25-Hydroxy 22.9 L (30.0-100.0) ng/mL Assessment and Plan Assessment: Status-post ORIF right distal tibial shaft fracture and right lateral malleolus fracture on 12/27/21. Post-operative day #1. Plan: - Strict non-weight bearing right lower extremity. Keep bulky Reich splint in place. - Physical therapy for gait and balance training. - Keep right upper extremity elevated for swelling and pain control. - Pain management as needed. Will attempt to transition patient off dilaudid [employer]SE SUPERVISOR as tolerated. - Internal medicine has been consulted for perioperative medical management. - Aspirin 81mg BID for DVT prophylaxis. - Anticipate discharge home within next 24-48 hours.
--- NOTE | 2021-12-28 11:42 | P.PN ---
Subjective Progress Note Date: 12/28/21 Patient still complains of left leg pain The patient is a 56-year-old male with a PMH of depression, anxiety, chronic lower extremity weakness and neuropathy (unclear etiology, extensive workup performed at [facility] as per patient), and hypertension (diet-controlled) who was admitted to the hospital for a planned repair of a right tibial fracture. The patient had slipped on ice and sustained an injury on 12/17/21 at which time he was brought to the hospital where he was diagnosed with a tibial fracture. During this visit, the patient was seen postoperatively on the surgical unit. He reported ongoing pain at the site of surgery, rated at 6 out of 10. He denied any additional complaints. Denied experiencing chest discomfort, shortness of breath, fever, chills, cough, nausea, vomiting, abdominal, diarrhea. Review of systems: Pertinent positives and negatives as discussed in HPI, a complete review of systems was performed and all other systems are negative. Physical examination: General: non toxic, no distress, appears at stated age, normal weight Derm: no unusual rashes/lesions no unusual ecchymoses, warm, dry Head: atraumatic, normocephalic, symmetric Eyes: EOMI, no lid lag, anicteric sclera, pupils equal round reactive to light ENT: Nose and ears atraumatic, no thrush, no pharyngeal erythema Neck: No thyromegaly, no cervical lymphadenopathy, trachea midline, supple Mouth: no lip lesion, mucus membranes moist Cardiovascular: S1S2 reg, no murmur, positive posterior tibial pulse bilateral, no edema, capillary refill less than 2 seconds Lungs: CTA bilateral, no rhonchi, no rales , no accessory muscle use Abdominal: soft, nontender to palpation, no guarding, no appreciable organomegaly, normal bowel sounds Ext: no gross muscle atrophy, muscle strength 5 out of 5 bilateral upper extremities and strength 3 out of 5 of left lower extremity, right lower extremity postoperative with David bandage noted, no contractures, Neuro: CN II-XI grossly intact, light touch intact all 4 extremities, finger to nose within normal limits, Psych: Alert, oriented, appropriate affect Assessment/plan Chronic conditions: Depression, anxiety, peripheral neuropathy -Continue with home meds Right tibial fracture repair with ORIF -Defer management including pain control to the surgery service Overall medically stable continue management as per primary team Objective - Vital Signs Vital signs: Vital Signs Temp 98.1 F 12/28/21 07:26 Pulse 74 12/28/21 10:22 Resp 18 12/28/21 07:26 BP 151/88 12/28/21 07:26 Pulse Ox 92 L 12/28/21 07:26 Intake & Output 12/27/21 12/28/21 12/28/21 18:59 06:59 18:59 Intake Total 1350 150 Output Total 350 Balance 1350 -200 Weight 81.647 kg Intake: IV 1350 150 Output: Urine 300 Estimated Blood Loss 50 Other: Voiding Method Urinal - Labs CBC & Chem 7: 12/27/21 21:47 Labs: Abnormal Lab Results - Last 24 Hours (Table) 12/27/21 12/27/21 Range/Units 21:47 21:47 WBC 13.26 H (4.50-10.00) X 10*3/uL MCHC 31.7 L (32.0-37.0) g/dL Immature Gran # 0.07 H (0.00-0.04) X 10*3/uL Neutrophils # 12.15 H (1.80-7.70) X 10*3/uL Lymphocytes # 0.75 L (0.90-5.00) X 10*3/uL Eosinophils # 0.01 L (0.04-0.35) X 10*3/uL Vitamin D 25-Hydroxy 22.9 L (30.0-100.0) ng/mL
[2021-12-28] MEDS ORDERED: CALCIUM CARBONATE 500 MG CHEWABLE PO PRN (15:22)
[2021-12-28] MEDS ORDERED: CALCIUM CARBONATE 500 MG CHEWABLE PO SCH (16:00)
[2021-12-28] MEDS: ALPRAZolam 0.5 MG TAB PO SCH (20:36)
[2021-12-28] MEDS: SENNOSIDES-DOCUSATE SODIUM 1 EACH TAB PO SCH (20:36)
[2021-12-29] MEDS: LACTATED RINGERS 1,000 ML IV SCH ×3 (02:59→20:32)
[2021-12-29] MEDS: hydrOXYzine pamoate 25 MG CAP PO PRN ×2 (05:58→17:43)
[2021-12-29] MEDS: HYDROmorphone PCA 10 MG/50 ML BAG IV PRN ×2 (05:58→14:16)
[2021-12-29] MEDS: oxyCODONE-APAP 10-325MG 1 EACH TAB PO PRN ×2 (05:58→17:43)
[2021-12-29] MEDS ORDERED: fentaNYL (PF) 50 MCG/ML 2 ML AMP IVP ONE ×3 (06:09→16:30)
--- NOTE | 2021-12-29 09:14 | P.PN ---
Subjective Progress Note Date: 12/29/21 Patient still complains of pain left leg but slightly improving no chest pain no shortness of breath Patient still complains of left leg pain The patient is a 56-year-old male with a PMH of depression, anxiety, chronic lower extremity weakness and neuropathy (unclear etiology, extensive workup performed at [facility] as per patient), and hypertension (diet-controlled) who was admitted to the hospital for a planned repair of a right tibial fracture. The patient had slipped on ice and sustained an injury on 12/17/21 at which time he was brought to the hospital where he was diagnosed with a tibial fracture. During this visit, the patient was seen postoperatively on the surgical unit. He reported ongoing pain at the site of surgery, rated at 6 out of 10. He denied any additional complaints. Denied experiencing chest discomfort, shortness of breath, fever, chills, cough, nausea, vomiting, abdominal, diarrhea. Review of systems: Pertinent positives and negatives as discussed in HPI, a complete review of systems was performed and all other systems are negative. Physical examination: General: non toxic, no distress, appears at stated age, normal weight Derm: no unusual rashes/lesions no unusual ecchymoses, warm, dry Head: atraumatic, normocephalic, symmetric Eyes: EOMI, no lid lag, anicteric sclera, pupils equal round reactive to light ENT: Nose and ears atraumatic, no thrush, no pharyngeal erythema Neck: No thyromegaly, no cervical lymphadenopathy, trachea midline, supple Mouth: no lip lesion, mucus membranes moist Cardiovascular: S1S2 reg, no murmur, positive posterior tibial pulse bilateral, no edema, capillary refill less than 2 seconds Lungs: CTA bilateral, no rhonchi, no rales , no accessory muscle use Abdominal: soft, nontender to palpation, no guarding, no appreciable organomegaly, normal bowel sounds Ext: no gross muscle atrophy, muscle strength 5 out of 5 bilateral upper extremities and strength 3 out of 5 of left lower extremity, right lower extremity postoperative with David bandage noted, no contractures, Neuro: CN II-XI grossly intact, light touch intact all 4 extremities, finger to nose within normal limits, Psych: Alert, oriented, appropriate affect Assessment/plan Chronic conditions: Depression, anxiety, peripheral neuropathy -Continue with home meds Right tibial fracture repair with ORIF -Defer management including pain control to the surgery service Overall medically stable continue management as per primary team Objective - Vital Signs Vital signs: Vital Signs Temp 98.9 F 12/29/21 01:50 Pulse 71 12/29/21 07:40 Resp 16 12/29/21 07:40 BP 165/86 12/29/21 01:50 Pulse Ox 95 12/29/21 01:50 Intake & Output 12/28/21 12/29/21 12/29/21 18:59 06:59 18:59 Intake Total 2080 Output Total 800 Balance 1280 Intake: Intake, IV Titration 1000 Amount Lactated Ringers 1,000 ml 1000 @ 100 mls/hr IV .Q10H [facility] Rx#:[id number] Oral 1080 Output: Urine 800 Other: Voiding Method Urinal Urinal # Voids 2 5 - Labs CBC & Chem 7: 12/27/21 21:47
[2021-12-29] MEDS: CHOLECALCIFEROL 25 MCG (1000 IU) TABLET PO SCH (09:59)
[2021-12-29] MEDS: ASPIRIN 81 MG PO SCH ×2 (09:59→20:30)
--- NOTE | 2021-12-29 11:45 | P.PN ---
Subjective Progress Note Date: 12/29/21 This patient is a 56- year old male who is status-post ORIF right distal tibial shaft fracture and right lateral malleolus fracture on 12/27/21. today is postoperative day #2. The patient is seen and examined bedside. He states he continues to have pain in the right leg. Patient continues to receive oxycodone and a Dilaudid [employer]OURCE CONSULTANT for pain control. Otherwise patient is doing well. He is tolerating his diet well. He denies chest pain, shortness of breath, nausea, vomiting. Objective - Vital Signs Vital signs: Vital Signs Temp 98.9 F 12/29/21 01:50 Pulse 71 12/29/21 07:40 Resp 16 12/29/21 07:40 BP 165/86 12/29/21 01:50 Pulse Ox 95 12/29/21 01:50 Intake & Output 12/28/21 12/29/21 12/29/21 18:59 06:59 18:59 Intake Total 2080 Output Total 800 Balance 1280 Intake: Intake, IV Titration 1000 Amount Lactated Ringers 1,000 ml 1000 @ 100 mls/hr IV .Q10H [facility] Rx#:[id number] Oral 1080 Output: Urine 800 Other: Voiding Method Urinal Urinal # Voids 2 5 - Exam On examination, patient is sitting up in the bedside chair. He is alert and oriented 3. On inspection of the right lower extremity, there is a clean, dry, intact bulky Reich splint in place. The visible portion of the toes are warm and well perfused with brisk capillary refill distally. There is no pain with passive ggoxa-ji-nztatj of the toes. Patient is able to wiggle toes appropriately, per nursing. Although during my e xam patient states he is unable to move toes. - Labs CBC & Chem 7: 12/27/21 21:47 Assessment and Plan Assessment: Status-post ORIF right distal tibial shaft fracture and right lateral malleolus fracture on 12/27/21. Post-operative day #2. Plan: - Patient currently receiving Percocet and Dilaudid for pain control. Pain management team has been consulted for recommendations moving forward as patient transitions off of Diluadid. - Strict non-weight bearing right lower extremity. Keep bulky Reich splint in place. - Physical therapy for gait and balance training. - Keep right upper extremity elevated for swelling and pain control. - Internal medicine for perioperative medical management. - Aspirin 81mg BID for DVT prophylaxis. - Anticipate discharge home tomorrow.
[2021-12-29] MEDS ORDERED: SODIUM CHLORIDE 0.9% (PF) 10 ML VIAL ONE (15:37)
[2021-12-29] MEDS ORDERED: ROPIVACAINE 5 MG/ML 30 ML VIAL ONE (15:37)
[2021-12-29] MEDS ORDERED: ROPIVACAINE 0.2%-NS ON-Q PUMP 1,090 MG, EMPTY PAIN BALL 1 EACH MISCELLANE PRN (16:03)
[2021-12-29] MEDS ORDERED: LACTATED RINGERS 1,000 ML IV ONE ×2 (16:09)
--- NOTE | 2021-12-29 16:57 | P.ANPRN ---
Procedure Note - Anesthesia - Nerve Block Performed Right Popliteal Infusion Time Out Performed: Yes (1418) Date of Procedure: 12/29/21 Procedure Start Time: 14:19 Procedure Stop Time: 14:24 Location of Patient: PreOp Indication: Acute Post-Operative Pain, Requested by Surgeon Specifically requested for management of pain by DrYolie: Maurice Brownlee Sedation Type: Sedate with meaningful contact maintained Preparation: Sterile Prep, Sterile Dressing Position: Left Lateral Catheter Depth at Skin (cm): 6 Catheter: Indwelling Needle Types: Pajunk Needle Gauge: 18 Ultrasound used to visualize needle placement: Yes Ultrasound used to observe medication spread: Yes Injectate: 0.5% Ropivacaine (see comment for volume) (15cc + 5cc nacl) Blood Aspirated: No Pain Paresthesia on Injection Noted: No Resistance on Injection: Normal Image Stored and Saved: Yes Events: Uneventful and Well Tolerated
--- NOTE | 2021-12-29 16:58 | P.ANPRN ---
Procedure Note - Anesthesia - Nerve Block Performed Left Adductor Canal Single Time Out Performed: Yes (1418) Date of Procedure: 12/29/21 Procedure Start Time: 14:25 Procedure Stop Time: 14:28 Location of Patient: PreOp Indication: Acute Post-Operative Pain, Requested by Surgeon Specifically requested for management of pain by DrYolie: Maurice Brownlee Sedation Type: Sedate with meaningful contact maintained Preparation: Sterile Prep Position: Supine Catheter: None Needle Types: Pajunk Needle Gauge: 21 Ultrasound used to visualize needle placement: Yes Ultrasound used to observe medication spread: Yes Injectate: 0.5% Ropivacaine (see comment for volume) (15cc + 5cc nacl) Blood Aspirated: No Pain Paresthesia on Injection Noted: No Resistance on Injection: Normal Image Stored and Saved: Yes Events: Uneventful and Well Tolerated
--- NOTE | 2021-12-29 17:01 | P.PN ---
Progress Note - Text Progress Note Date: 12/29/21 Anesthesiology Consulted for postoperative pain control - nerve catheter placement. Patient was brought down to recovery. Procedure was explained. Patient consented and single shot adductor canal block was performed (see note) and popliteal perineural catheter was placed as well. Patient tolerated procedure well with good relief. Given instructions for removal monday as well as management for catheter.
[2021-12-29 19:27] LABS: Basophils # (A) 0.06 X 10*3/uL (0.00-0.10); Basophils % (A) 0.6 %; Eosinophils # (A) 0.16 X 10*3/uL (0.04-0.35); Eosinophils % (A) 1.5 %; HCT 38.3 % (39.6-50.0); HGB 12.4 g/dL (13.0-17.0); Immature Grans, Automated 0.4 %; Lymphocytes % (A) 13.1 %; MCH 29.6 pg (27.0-32.0); MCHC 32.4 g/dL (32.0-37.0); MCV 91.4 fL (80.0-97.0); Mean Platelet Volume 10.8 fL (9.5-12.2); Monocytes # (A) 1.29 X 10*3/uL (0.20-1.00); Monocytes % (A) 12.1 %; NRBC Per 100 WBC 0 /100 WBCS (0.0-0.0); Neutrophils # (A) 7.71 X 10*3/uL (1.80-7.70); Neutrophils % (A) 72.3 %; Platelet Count 315 X 10*3/uL (140-440); RBC 4.19 X 10*6/uL (4.40-5.60); RDW 12.6 % (11.5-14.5); WBC 10.66 X 10*3/uL (4.50-10.00)
[2021-12-29] MEDS: SENNOSIDES-DOCUSATE SODIUM 1 EACH TAB PO SCH (20:29)
[2021-12-29] MEDS: ALPRAZolam 0.5 MG TAB PO SCH (20:30)
[2021-12-30] MEDS: oxyCODONE-APAP 10-325MG 1 EACH TAB PO PRN ×3 (02:14→20:48)
[2021-12-30] MEDS: hydrOXYzine pamoate 25 MG CAP PO PRN (02:15)
[2021-12-30] MEDS: HYDROmorphone PCA 10 MG/50 ML BAG IV PRN ×2 (04:21→18:56)
[2021-12-30] MEDS: CHOLECALCIFEROL 25 MCG (1000 IU) TABLET PO SCH (06:58)
[2021-12-30] MEDS: LACTATED RINGERS 1,000 ML IV SCH ×2 (06:58→17:55)
[2021-12-30] MEDS: ASPIRIN 81 MG PO SCH ×2 (06:58→20:48)
--- NOTE | 2021-12-30 07:02 | P.PN ---
Progress Note - Text Progress Note Date: 12/30/21 (212) Anesthesiology Postop day 3 status post ORIF ankle. Yesterday was consulted for possible perineural catheter placement. Patient received a popliteal nerve catheter on the right. Patient doing well. VAS 6 out of 10. At home patient averages 8 out of 10. So were improved. Gross strength intact in lower extremity. Afebrile. Denies alterations in sensorium other than usual neuropathy symptoms. Catheter site intact. Heart regular rate Lungs nonlabored Abdomen nondistended Assessment: Postop day 3 status post ORIF ankle with popliteal catheter catheter day 1 Plan: All questions answered. Maintain catheter 2 more days with patient removal at home. Instructions were given at discharge.
--- NOTE | 2021-12-30 10:38 | P.PN ---
Subjective Progress Note Date: 12/30/21 Patient feels okay pain significantly improved no chest pain no shortness of breath Patient still complains of pain left leg but slightly improving no chest pain no shortness of breath Patient still complains of left leg pain The patient is a 56-year-old male with a PMH of depression, anxiety, chronic low er extremity weakness and neuropathy (unclear etiology, extensive workup performed at [facility] as per patient), and hypertension (diet-controlled) who was admitted to the hospital for a planned repair of a right tibial fracture. The patient had slipped on ice and sustained an injury on 12/17/21 at which time he was brought to the hospital where he was diagnosed with a tibial fracture. During this visit, the patient was seen postoperatively on the surgical unit. He reported ongoing pain at the site of surgery, rated at 6 out of 10. He denied any additional complaints. Denied experiencing chest discomfort, shortness of breath, fever, chills, cough, nausea, vomiting, abdominal, diarrhea. Review of systems: Pertinent positives and negatives as discussed in HPI, a complete review of syst ems was performed and all other systems are negative. Physical examination: General: non toxic, no distress, appears at stated age, normal weight Derm: no unusual rashes/lesions no unusual ecchymoses, warm, dry Head: atraumatic, normocephalic, symmetric Eyes: EOMI, no lid lag, anicteric sclera, pupils equal round reactive to light ENT: Nose and ears atraumatic, no thrush, no pharyngeal erythema Neck: No thyromegaly, no cervical lymphadenopathy, trachea midline, supple Mouth: no lip lesion, mucus membranes moist Cardiovascular: S1S2 reg, no murmur, positive posterior tibial pulse bilateral, no edema, capillary refill less than 2 seconds Lungs: CTA bilateral, no rhonchi, no rales , no accessory muscle use Abdominal: soft, nontender to palpation, no guarding, no appreciable organomegaly, normal bowel sounds Ext: no gross muscle atrophy, muscle strength 5 out of 5 bilateral upper extremities and strength 3 out of 5 of left lower extremity, right lower extremity postoperative with David bandage noted, no contractures, Neuro: CN II-XI grossly intact, light touch intact all 4 extremities, finger to nose within normal limits, Psych: Alert, oriented, appropriate affect Assessment/plan Chronic conditions: Depression, anxiety, peripheral neuropathy -Continue with home meds Right tibial fracture repair with ORIF -Defer management including pain control to the surgery service Overall medically stable continue management as per primary team patient feels okay today Objective - Vital Signs Vital signs: Vital Signs Temp 98.5 F 12/30/21 02:00 Pulse 73 12/30/21 02:00 Resp 18 12/30/21 02:00 BP 129/88 12/30/21 02:00 Pulse Ox 94 L 12/30/21 02:00 Intake & Output 12/29/21 12/30/21 12/30/21 18:59 06:59 18:59 Intake Total 1650 Output Total 400 Balance 1650 -400 Weight 81.647 kg Intake: IV 100 Intake, IV Titration 800 Amount Lactated Ringers 1,000 ml 800 @ 100 mls/hr IV .Q10H [facility] Rx#:[id number] Oral 750 Output: Urine 400 Other: Voiding Method Urinal Urinal Urinal # Voids 4 - Labs CBC & Chem 7: 12/29/21 14:56 Labs: Abnormal Lab Results - Last 24 Hours (Table) 12/29/21 Range/Units 14:56 WBC 10.66 H (4.50-10.00) X 10*3/uL RBC 4.19 L (4.40-5.60) X 10*6/uL Hgb 12.4 L (13.0-17.0) g/dL Hct 38.3 L (39.6-50.0) % Neutrophils # 7.71 H (1.80-7.70) X 10*3/uL Monocytes # 1.29 H (0.20-1.00) X 10*3/uL
--- NOTE | 2021-12-30 13:02 | P.PN ---
Subjective Progress Note Date: 12/30/21 Principal diagnosis: Postop ORIF right tibia and distal fibula. Tib-fib fracture, right. This patient is a 56- year old male who is status-post ORIF right distal tibial shaft fracture and right lateral malleolus fracture on 12/27/21. today is postoperative day #3. The patient is seen and examined bedside. He is improved today. He had a pain block with On-Q ball inserted by pain management. Patient is doing well. He is tolerating his diet well. He denies chest pain, shortness of breath, nausea, vomiting. He had some difficulty with physical therapy. PT is recommending inpatient rehabilitation. Objective - Vital Signs Vital signs: Vital Signs Temp 98.1 F 12/30/21 08:00 Pulse 66 12/30/21 08:00 Resp 18 12/30/21 08:00 BP 122/75 12/30/21 08:00 Pulse Ox 95 12/30/21 08:00 Intake & Output 12/29/21 12/30/21 12/30/21 18:59 06:59 18:59 Intake Total 1650 Output Total 400 Balance 1650 -400 Weight 81.647 kg Intake: IV 100 Intake, IV Titration 800 Amount Lactated Ringers 1,000 ml 800 @ 100 mls/hr IV .Q10H [facility] Rx#:[id number] Oral 750 Output: Urine 400 Other: Voiding Method Urinal Urinal Urinal # Voids 4 - Exam This is A pleasant 48-year-old gentleman in no acute distress. He is alert and oriented 3. Exam of the right lower extremity reveals that his dressing is clean, dry and intact. Splint is intact. He is unable/unwilling to wiggle his toes at this time. Capillary refill is less than 3 seconds. - Labs CBC & Chem 7: 12/29/21 14:56 Labs: Abnormal Lab Results - Last 24 Hours (Table) 12/29/21 Range/Units 14:56 WBC 10.66 H (4.50-10.00) X 10*3/uL RBC 4.19 L (4.40-5.60) X 10*6/uL Hgb 12.4 L (13.0-17.0) g/dL Hct 38.3 L (39.6-50.0) % Neutrophils # 7.71 H (1.80-7.70) X 10*3/uL Monocytes # 1.29 H (0.20-1.00) X 10*3/uL Assessment and Plan (1) Status post open reduction with internal fixation of fracture Current Visit: Yes Status: Acute Code(s): Z98.890 - OTHER SPECIFIED POSTPROCEDURAL STATES; Z87.81 - PERSONAL HISTORY OF (HEALED) TRAUMATIC FRACTURE SNOMED Code(s): 900670587 (2) Closed fracture of right distal tibia Current Visit: Yes Status: Acute Code(s): S82.301A - UNSP FRACTURE OF LOWER END OF RIGHT TIBIA, INIT FOR CLOS FX SNOMED Code(s): 578043319 (3) Closed traumatic nondisplaced fracture of distal end of right tibia Current Visit: No Status: Acute Code(s): S82.301A - UNSP FRACTURE OF LOWER END OF RIGHT TIBIA, INIT FOR CLOS FX SNOMED Code(s): 374013428 (4) Traumatic closed nondisplaced fracture of distal end of right fibula Current Visit: No Status: Acute Code(s): S82.831A - OTH FRACTURE OF UPPER AND LOWER END OF RIGHT FIBULA, INIT SNOMED Code(s): 367490875 Plan: The clinical findings are discussed with the patient. It is discussed with the patient that physical therapy has recommended inpatient rehabilitation after their assessment today. The patient is considering possible rehabilitation but would like to go home. We will keep him until tomorrow and make a decision on discharge at that time.
[2021-12-30] MEDS: ALPRAZolam 0.5 MG TAB PO SCH (20:48)
[2021-12-30] MEDS: SENNOSIDES-DOCUSATE SODIUM 1 EACH TAB PO SCH (20:48)
[2021-12-31] MEDS: oxyCODONE-APAP 10-325MG 1 EACH TAB PO PRN (04:59)
[2021-12-31] MEDS: LACTATED RINGERS 1,000 ML IV SCH (05:12)
[2021-12-31] MEDS: HYDROmorphone PCA 10 MG/50 ML BAG IV PRN (05:39)
[2021-12-31] MEDS: CHOLECALCIFEROL 25 MCG (1000 IU) TABLET PO SCH (08:30)
[2021-12-31] MEDS: ASPIRIN 81 MG PO SCH (08:30)
[2021-12-31 09:42] VITALS: BP 145/89; PULSE 60; RESP 16; TEMP 97.5
--- NOTE | 2021-12-31 10:55 | P.DS ---
Providers Date of admission: 12/29/21 13:35 Expected date of discharge: 12/31/21 Attending physician: Maurice Brownlee Consults: 12/27/21 19:40 Consult Physician Routine Consulting Provider: Sumit Yeung Consult Reason/Comments: medical management Do you want consulting provider notified?: Yes 12/27/21 19:53 Consult Physician Routine Consulting Provider: Chaitanya Gonzalez Consult Reason/Comments: medical management Do you want consulting provider notified?: Yes Primary care physician: Sumit Yeung MD - Discharge Diagnosis(es) (1) Status post open reduction with internal fixation of fracture Current Visit: Yes Status: Acute (2) Closed fracture of right distal tibia Current Visit: Yes Status: Acute (3) Closed traumatic nondisplaced fracture of distal end of right tibia Current Visit: No Status: Acute (4) Traumatic closed nondisplaced fracture of distal end of right fibula Current Visit: No Status: Acute Hospital Course: This patient is a 56- year old male who is status-post ORIF right distal tibial shaft fracture and right lateral malleolus fracture on 12/27/21. today is postoperative day #4. The patient is seen and examined bedside. He is improved today. He had a pain block with On-Q ball inserted by pain management. Patient is doing well. He is tolerating his diet well. He denies chest pain, shortness of breath, nausea, vomiting. The patient did better with physical therapy today. The patient would like to be discharged to home. The patient is discharged to home today in stable condition. Please see med rec for accurate list of home medications. Plan - Discharge Summary Discharge Rx Participant: No New Discharge Prescriptions: New Aspirin 81 mg PO BID 30 Days #60 tab Docusate [Colace] 100 mg PO BID #60 capsule Calcium Carbonate [Tums] 500 mg PO QID #90 tab Cholecalciferol [Vitamin D3 (25 Mcg = 1000 Iu)] 50 mcg PO DAILY 30 Days #30 tab No Action ALPRAZolam [Xanax] 0.5 mg PO HS oxyCODONE-APAP 10-325MG [Percocet 10-325] 1 tab PO TID Temazepam [Restoril] 15 mg PO HS PRN PRN Reason: Insomnia Pregabalin [Lyrica] 300 mg PO DAILY PRN PRN Reason: "when my legs quit working" Discharge Medication List ALPRAZolam [Xanax] 0.5 mg PO HS 07/30/15 [History] oxyCODONE-APAP 10-325MG [Percocet 10-325] 1 tab PO TID 07/30/15 [History] Pregabalin [Lyrica] 300 mg PO DAILY PRN 12/17/21 [History] Temazepam [Restoril] 15 mg PO HS PRN 12/17/21 [History] Aspirin 81 mg PO BID 30 Days #60 tab 12/29/21 [Rx] Calcium Carbonate [Tums] 500 mg PO QID #90 tab 12/29/21 [Rx] Cholecalciferol [Vitamin D3 (25 Mcg = 1000 Iu)] 50 mcg PO DAILY 30 Days #30 tab 12/29/21 [Rx] Docusate [Colace] 100 mg PO BID #60 capsule 12/29/21 [Rx] Follow up Appointment(s)/Referral(s): [facility], [NON-STAFF] - As Needed Maurice Brownlee MD [Medical Doctor] - 2 Weeks Activity/Diet/Wound Care/Special Instructions: Strict non-weight bearing operative leg. Keep operative leg elevated for swelling and pain control. Patient has a pain contract with Dr. Yeung. All pain medications moving forward should be obtained from Dr. Yeung. Keep bulky Reich splint clean, dry, intact. Take aspirin 81mg BID x 4 weeks for blood clot prevention. Follow-up in the office in two weeks with Dr. Brownlee. Call the office with any questions or concerns, Discharge Disposition: HOME WITH HOME HEALTH SERVICES
--- NOTE | 2021-12-31 13:12 | P.PN ---
Subjective Progress Note Date: 12/31/21 Principal diagnosis: No chest pain no shortness of breath Patient feels okay pain significantly improved no chest pain no shortness of breath Patient still complains of pain left leg but slightly improving no chest pain no shortness of breath Patient still complains of left leg pain The patient is a 56-year-old male with a PMH of depression, anxiety, chronic lower extremity weakness and neuropathy (unclear etiology, extensive workup performed at [facility] as per patient), and hypertension (diet-controlled) who was admitted to the hospital for a planned repair of a right tibial fracture. The patient had slipped on ice and sustained an injury on 12/17/21 at which time he was brought to the hospital where he was diagnosed with a tibial fracture. During this visit, the patient was seen postoperatively on the surgical unit. He reported ongoing pain at the site of surgery, rated at 6 out of 10. He denied any additional complaints. Denied experiencing chest discomfort, shortness of breath, fever, chills, cough, nausea, vomiting, abdominal, diarrhea. Review of systems: Pertinent positives and negatives as discussed in HPI, a complete review of systems was performed and all other systems are negative. Physical examination: General: non toxic, no distress, appears at stated age, normal weight Derm: no unusual rashes/lesions no unusual ecchymoses, warm, dry Head: atraumatic, normocephalic, symmetric Eyes: EOMI, no lid lag, anicteric sclera, pupils equal round reactive to light ENT: Nose and ears atraumatic, no thrush, no pharyngeal erythema Neck: No thyromegaly, no cervical lymphadenopathy, trachea midline, supple Mouth: no lip lesion, mucus membranes moist Cardiovascular: S1S2 reg, no murmur, positive posterior tibial pulse bilateral, no edema, capillary refill less than 2 seconds Lungs: CTA bilateral, no rhonchi, no rales , no accessory muscle use Abdominal: soft, nontender to palpation, no guarding, no appreciable organomegaly, normal bowel sounds Ext: no gross muscle atrophy, muscle strength 5 out of 5 bilateral upper extremities and strength 3 out of 5 of left lower extremity, right lower extremity postoperative with David bandage noted, no contractures, Neuro: CN II-XI grossly intact, light touch intact all 4 extremities, finger to nose within normal limits, Psych: Alert, oriented, appropriate affect Assessment/plan Chronic conditions: Depression, anxiety, peripheral neuropathy -Continue with home meds Right tibial fracture repair with ORIF -Defer management including pain control to the surgery service Medically stable for discharge Objective - Vital Signs Vital signs: Vital Signs Temp 97.5 F L 12/31/21 08:00 Pulse 60 12/31/21 08:00 Resp 16 12/31/21 08:00 BP 145/89 12/31/21 08:00 Pulse Ox 97 12/31/21 08:00 Intake & Output 12/30/21 12/31/21 12/31/21 18:59 06:59 18:59 Intake Total 592 Output Total 1000 Balance -408 Intake: Oral 592 Output: Urine 1000 Other: Voiding Method Urinal # Voids 6 # Bowel Movements 1 - Labs CBC & Chem 7: 12/29/21 14:56
== END 2021-12-31 13:00 | disposition home health service (06) | DRG 493 ==
LOC: OR 07:26 → 5NMEDONC 17:05 → 4SSUR 18:33 → OR 12-28 14:10 → 4SSUR 12-28 14:10 → OBSVTOIN 12-29 13:35
PROVIDERS: ADMIT Orthopaedic Surgery; ATTEND Orthopaedic Surgery
PROC: 0QSG04Z Reposition Right Tibia with Internal Fixation Device, Open Approach (ICD-10-PCS; 2021-12-27)
PROC: 0QSJ04Z Reposition Right Fibula with Internal Fixation Device, Open Approach (ICD-10-PCS; principal; 2021-12-27 09:00)
DX: S82.61XA Displaced fracture of lateral malleolus of right fibula, initial encounter for closed fracture (principal); S82.201A Unspecified fracture of shaft of right tibia, initial encounter for closed fracture; I10 Essential (primary) hypertension; F17.210 Nicotine dependence, cigarettes, uncomplicated; F32.A Depression, unspecified; F41.9 Anxiety disorder, unspecified; G62.0 Drug-induced polyneuropathy; Z20.822 Contact with and (suspected) exposure to COVID-19; W00.0XXA Fall on same level due to ice and snow, initial encounter; Z85.038 Personal history of other malignant neoplasm of large intestine; T45.1X5A Adverse effect of antineoplastic and immunosuppressive drugs, initial encounter; Z79.899 Other long term (current) drug therapy; Z86.69 Personal history of other diseases of the nervous system and sense organs; Z90.49 Acquired absence of other specified parts of digestive tract; Z80.0 Family history of malignant neoplasm of digestive organs; Z80.42 Family history of malignant neoplasm of prostate
CPT/HCPCS: 64445; 64447; 64450; 76942; 82306; 85025; 85027; 87635

== ENCOUNTER → 2022-05-06 | Outpatient (CLI) | payer MEDICARE ==
--- NOTE | 2022-05-07 03:49 | MR ---
EXAMINATION TYPE: MR lumbar spine wo con DATE OF EXAM: 05/06/2022 COMPARISON: 02/15/2021 HISTORY: Low back pain that radiates down both sides, losing abilty to walk. Multiplanar multiecho imaging of the lumbar spine with no contrast. The lumbar vertebrae have normal alignment. There is narrowing at the L4-5 disc space. There is poste rior mild disc bulging and herniation from L2 to L5. There is developmentally adequate spinal canal. There is no significant narrowing of the spinal canal except at L3-4. There is no lumbar paraspinal m ass. No compression fracture. The sacroiliac joints particularly visualized and appear normal. IMPRESSION: Multilevel posterior small disc herniations. There is improvement in the disc herniation at L4-5 comp ared to old exam. There is a mild relative spinal stenosis at L3-4. The narrowing at L3-4 appears sli ghtly worse.
== END | disposition home or self-care (01) ==
LOC: RADMRIMAIN 16:12
PROVIDERS: ATTEND Family Medicine
DX: M51.16 Intervertebral disc disorders with radiculopathy, lumbar region (principal); M48.061 Spinal stenosis, lumbar region without neurogenic claudication; M99.73 Connective tissue and disc stenosis of intervertebral foramina of lumbar region
CPT/HCPCS: 72148

== ENCOUNTER 2022-09-08 07:11 | Day surgery (SDC) | payer MEDICARE ==
[2022-09-07 11:46] VITALS: BMI 28.1
[~2022-09-08 07:11] MED LIST changes: -DEXAMETHASONE SOD PHOSPHATE 4 MG/ML 1 ML VIAL IV ONE; -HYDROmorphone 0.5 MG/0.5 ML SYRINGE IVP PRN; +LACTATED RINGERS 1,000 ML IV SCH; -MIDAZOLAM 2 MG/2 ML VIAL IV PRN; -ONDANSETRON 4 MG/2 ML VIAL IVP ONE; -SCOPOLAMINE 1.5MG/72HR PATCH TRANSDERM ONE
[2022-09-08] MEDS ORDERED: LACTATED RINGERS 1,000 ML IV ONE (07:27)
[2022-09-08 07:39] VITALS: TEMP 98
[2022-09-08] MEDS ORDERED: PROPOFOL 10 MG/ML 20 ML VIAL IV ONE (08:07)
--- NOTE | 2022-09-08 08:09 | P.GSHP ---
History of Present Illness H&P Date: 09/08/22 Chief Complaint: History of colon cancer Is a 57-year-old male who presents today for colonoscopy. Patient's. History of colon cancer. Patient had a low anterior section approximately 10 years ago. Past Medical History Past Medical History: Cancer, Eye Disorder Additional Past Medical History / Comment(s): fx rt lower leg-healed,"I have been having balance problems thats why I fell", HX COLON CA@ AGE 45-received chemo and radiation;SPINAL MENIGITIS 2000, LIGHTHEADED AT TIMES,HX ACUTE BRACHIAL PLEXIS NEURITIS-HURTS ALL OVER-EVERY JOINT- STATES LEGS ARE STARTING TO GET SMALLER & HARD TO WALK FAR-NEUROPATHY-"my legs give out on me" History of Any Multi-Drug Resistant Organisms: None Reported Past Surgical History: Back Surgery, Bowel Resection Additional Past Surgical History / Comment(s): HAD BOWEL RESECTION AND AN ILEOSTOMY, THEN A REVERSAL DONE, COLONOSCOPIES,pain procedures,neck procedure Past Anesthesia/Blood Transfusion Reactions: No Reported Reaction Smoking Status: Current every day smoker - Past Family History Mother Family Medical History: Cancer Additional Family Medical History / Comment(s): OF STOMACH CA 2013 Father Family Medical History: Cancer Additional Family Medical History / Comment(s): PROSTATE CA Medications and Allergies Home Medications Medication Instructions Recorded Confirmed Type ALPRAZolam [Xanax] 0.5 mg PO HS 07/30/15 09/07/22 History oxyCODONE-APAP 10-325MG [Percocet 1 tab PO DAILY 07/30/15 09/07/22 History 10-325] Pregabalin [Lyrica] 300 mg PO QAM 12/17/21 09/07/22 History Temazepam [Restoril] 15 mg PO HS PRN 12/17/21 09/07/22 History Ergocalciferol [Vitamin D2 (1250 1,250 mcg PO WEEKLY 09/07/22 09/07/22 History Mcg = 15331 Iu)] Multivitamins, Thera [Multivitamin 1 tab PO DAILY 09/07/22 09/07/22 History (formulary)] Allergies Allergy/AdvReac Type Severity Reaction Status Date / Time No Known Allergies Allergy Verified 09/07/22 11:32 Surgical - Exam Vital Signs Temp Pulse Resp BP Pulse Ox 98 F 70 18 161/90 96 09/08/22 07:38 09/08/22 07:38 09/08/22 07:38 09/08/22 07:38 09/08/22 07:38 - General well developed, well nourished, no distress - Eyes PERRL - ENT normal pinna - Neck no masses - Respiratory normal expansion - Cardiovascular Rhythm: regular - Abdomen Abdomen: soft, non tender Assessment and Plan Assessment: History of colon cancer. We'll perform colonoscopy.
--- NOTE | 2022-09-08 08:19 | P.OP ---
Date of Procedure: 09/08/22 Preoperative Diagnosis: History of colon cancer Postoperative Diagnosis: Normal colonoscopy status post low anterior resection Procedure(s) Performed: Colonoscopy Anesthesia: MAC Surgeon: Fritz Anne Pathology: none sent Condition: stable Disposition: PACU Description of Procedure: The patient's placed on the endoscopy table in the lateral position. He received IV sedation. Digital rectal exam was performed. The patient a previous: Coloanal anastomosis. This was digitally palpated. There is no evidence of any scarring. The flexible colonoscope was then placed patient anus passed throughout the entire colon. The ileocecal valve was visualized. The cecum, ascending and transverse colon appeared normal. The descending colon appeared normal. Scope was then brought back through the coloanal anastomosis this was normal. Scope was withdrawn for patient. There is no evidence of any recurrent tumor.
[2022-09-08 08:26] VITALS: RESP 14
[2022-09-08 08:39] VITALS: BP 123/91; PULSE 65
== END 2022-09-08 09:08 | disposition home or self-care (01) ==
LOC: ORWHC2ENDO 07:11
PROVIDERS: ATTEND Surgery
DX: Z12.11 Encounter for screening for malignant neoplasm of colon (principal); G62.9 Polyneuropathy, unspecified; F17.210 Nicotine dependence, cigarettes, uncomplicated; Z98.890 Other specified postprocedural states; Z98.84 Bariatric surgery status; Z85.038 Personal history of other malignant neoplasm of large intestine; Z80.0 Family history of malignant neoplasm of digestive organs; Z80.42 Family history of malignant neoplasm of prostate
CPT/HCPCS: G0105; J2704; 45378

== ENCOUNTER → 2022-11-12 | Outpatient (CLI) | payer MEDICARE ==
--- NOTE | 2022-11-12 16:48 | MR ---
EXAMINATION TYPE: MR thoracic spine wo/w con DATE OF EXAM: 11/12/2022 COMPARISON: 03/01/2021 HISTORY: Thoracic lesion. Pain. CONTRAST: Standard multiplanar, multisequence MRI departmental protocol images were obtained without contrast a nd with Thoracic lesion, pain mid to lower back, right leg spastic mL intravenous Gadavist gadolinium contrast. The thoracic vertebrae have normal alignment. There is moderate posterior disc herniation at T12-L1 i nto the spinal canal. This extends towards the right side with slight effacement of the thecal sac. T here is no thoracic compression fracture. There is mild spurring anteriorly in the mid and lower thor acic spine. No thoracic paraspinal mass. The posterior elements are intact. There is no pathologic enhancement. Thoracic spinal cord has fairly normal signal pattern. No edema. No evidence of spinal cord mass. Thoracic and neural foramina are fairly well-maintained. IMPRESSION: Posterior right side T12-L1 thoracic disc herniation without change compared to old exam. No acute rigo ny abnormality.
== END | disposition home or self-care (01) ==
LOC: RADMRIMAIN 13:57
PROVIDERS: ATTEND Psychiatry & Neurology Neurology
DX: G81.11 Spastic hemiplegia affecting right dominant side (principal); R26.9 Unspecified abnormalities of gait and mobility; M51.24 Other intervertebral disc displacement, thoracic region; R90.89 Other abnormal findings on diagnostic imaging of central nervous system
CPT/HCPCS: 72157; A9585

== ENCOUNTER → 2022-11-29 | Outpatient (CLI) | payer MEDICARE ==
--- NOTE | 2022-11-29 16:05 | US ---
EXAMINATION TYPE: US bladder DATE OF EXAM: 11/29/2022 COMPARISON: NONE CLINICAL HISTORY: N32.0 N32.81. back pain. Constant urination per patient. Post void check per ord er. TECHNIQUE: Multiple sonographic images of the bladder are obtained. FINDINGS: EXAM MEASUREMENTS: Post Void Residual Volume: 9.9 mL Color Doppler performed to assess ureteral jets. Bilateral Jets seen Normal Post Void Residual (less than 50ml): Yes Urinary bladder is anechoic without definitive nodularity. IMPRESSION: 1. Normal post void residual. 2. No ultrasound evidence of acute process.
== END | disposition home or self-care (01) ==
LOC: RADUSWWP 15:00
PROVIDERS: ATTEND Psychiatry & Neurology Neurology
DX: N32.0 Bladder-neck obstruction (principal); N32.81 Overactive bladder
CPT/HCPCS: 76857

== ENCOUNTER → 2023-02-06 | Outpatient (CLI) | payer MEDICARE ==
[2023-02-06 11:57] VITALS: BP 137/92; PULSE 62; RESP 18; TEMP 98.4
--- NOTE | 2023-02-06 14:58 | P.PAINPG ---
PQRS Measure Charge Sheet Comment: HISTORY OF PRESENT ILLNESS: 57 yr old male as a referral from Dr Nelson presents today w severe and chronic LBP secondary to DDD, spondylosis and facet arthropathy without myelopathy for evaluation. Pt states pain level provoked is at 8/10 in intensity, constant, localized in the mid to lower lumbar spine, achy in character w shooting pain towards BL hips and RLE. Pain is provoked by sitting for periods of 20 min, or over activity. Pain is alleviated by PT x 3 wks in 2021 but stopped when experienced a LE fracture, home stretching regimen, chiropractic treatment x 1 which was ineffective, ice, medications (Oxycodone, Lyrica), topical, repositioning and rest. PMH: Colon CA, Eye Disorder PSH: Colonoscopy (2021), Bowel Resection w Ileostomy & Reversal, CESIs, Lumbar Surgery SH: Daily tobacco use, No ETOH abuse, No illicit drug use. FH: Mo- Stomach CA (2013). Fa- Prostate CA. All: NKDA Meds: See list REVIEW OF ORGAN SYSTEMS: CONSTITUTIONAL: No fevers or chills. No recent weight loss. NEUROLOGICAL: + numbness and tingling along the distal extremities. No seizure disorders or headaches. MUSCULOSKELETAL: + pain PSYCHIATRIC: Denies current depression or suicidal thoughts. Physical Examinations : Constitutional : Cooperative , not in acute distress . Neurologic : Cranial nerve II to XII intact. No focal neurological deficits. Psychiatric : alert & oriented x 3. Matching mood & appropriate affect. Judgment & insight intact. Musculoskeletal : Cervical Spine Motor strength in the deltoid and biceps: Normal right side. Normal Left side Motor strength biceps and the wrist extensors: Normal right side . Normal left side Motor strength in the triceps muscle: Normal right side. Normal left side Deep tendon reflexes: Normal at the biceps. Normal at Brachioradialis. Normal at triceps Vertebral body tenderness to deep palpation over Cervical facet loading test: positive bilaterally Spurling test: positive bilaterally Neck distraction test: positive bilaterally Michelle sign: positive bilaterally Lumbar spine Motor strength lower extremities ,thigh and legs 5/5 Right side , 5/5 Left side Deep tendon reflexes : Normal Knee Jerk. Normal Ankle Jerk Vertebral body tenderness over L4 Lumbar facet Loading Test: positive Right / positive Left Range of motion of the lumbar spine Flexion 30 degrees, extension 10 degrees Straight Leg Raise test: Left/ Right positive at degree Tomy test: positive right / positive left. Severe tenderness over the Sacroiliac joint on the Right / Left sides Gaenslen test: positive bilaterally Seated flexion test: positive bilaterally. Sacral spine : Severe tenderness over the Sacroiliac joint: right side / left side Range of motion: Flexion of the lumbar spine <60 degrees Range of motion: Extension of the lumbar spine <20 degrees Gaenslen's Test positive Todd's Test positive Tomy test: positive right side / left side Thigh Thrust Test Sacral Thrust Test Imaging: MRI without contrast of the lumbar spine from reviewed Assessment/ Plan : Lumbar DDD Recommendation of CAMPOS L3-L4 #1. May need a series of injections for optimal pain relief. Risks, benefits of procedure discussed and patient verbalized understanding. Admits to aspirin or anti- coagulant use or medical history of diabetes. Protocol for discontinuation/ continuation of medications geoffrey procedure discussed. All questions answered. I have spent greater than 30 minutes on patient care today. Dr Dailey was available by phone for the evaluation of this patient. The time was used to review the medical records including relevant urine studies and Prescription history (MAPs), review of the available imaging, evaluation and examination of the patient, coordination of care with the medical staff and if applicable referring physicians, as well as creation of the medical record - Pain Location Bilateral Lower Back Non-Pharmacological Interventions: Ice, Inactivity, Physical Therapy, Stretching Pharmacological Interventions: PRN Medication, Scheduled Medication, Topical Medication PQRS Narrative: Smoking Status Current every day smoker Home Medications: Ambulatory Orders ALPRAZolam [Xanax] 0.5 mg PO HS 07/30/15 oxyCODONE-APAP 10-325MG [Percocet 10-325] 1 tab PO DAILY 07/30/15 Pregabalin [Lyrica] 300 mg PO QAM 12/17/21 Temazepam [Restoril] 15 mg PO HS PRN 12/17/21 Ergocalciferol [Vitamin D2 (1250 Mcg = 50061 Iu)] 1,250 mcg PO WEEKLY 09/07/22 Multivitamins, Thera [Multivitamin (formulary)] 1 tab PO DAILY 09/07/22 Controlled Substance Measures - Controlled Substance Measures Is patient prescribed a controlled substance at discharge?: No
== END ==
LOC: PNWHC3 11:12
PROVIDERS: ATTEND Specialist
DX: M51.36 Other intervertebral disc degeneration, lumbar region (principal); C18.9 Malignant neoplasm of colon, unspecified; H57.9 Unspecified disorder of eye and adnexa; F17.200 Nicotine dependence, unspecified, uncomplicated
CPT/HCPCS: 99211

== ENCOUNTER 2023-03-02 12:54 | Day surgery (SDC) | payer MEDICARE ==
[2023-02-28 11:45] VITALS: BMI 27.3
[2023-03-02 14:04] VITALS: TEMP 97.6
[2023-03-02] MEDS ORDERED: LACTATED RINGERS 1,000 ML IV ONE (14:09)
[2023-03-02] MEDS ORDERED: LACTATED RINGERS 1,000 ML IV SCH (14:13)
[2023-03-02] MEDS ORDERED: LIDOCAINE 1% (10MG/ML) FOR IV START INTRADERMA PRN (14:13)
[2023-03-02] MEDS ORDERED: fentaNYL (PF) 50 MCG/ML 2 ML AMP ONE (14:18)
[2023-03-02] MEDS ORDERED: methylPREDNISolone ACETATE 40 MG/ML 1 ML VIAL ONE (14:18)
[2023-03-02] MEDS ORDERED: IOPAMIDOL M200 10 ML VIAL ONE (14:18)
[2023-03-02] MEDS ORDERED: MIDAZOLAM 2 MG/2 ML VIAL ONE (14:18)
[2023-03-02] MEDS ORDERED: IV FLUID CONTINUATION 1,000 ML IV ONE (14:28)
--- NOTE | 2023-03-02 14:30 | P.PCN ---
Date of Procedure: 03/02/23 Procedure(s) Performed: PREOPERATIVE DIAGNOSIS: 1- Lumbar herniated Disc Disease 2-lumbar spinal stenosis POSTOPERATIVE DIAGNOSIS: same as pre op diagnosis PROCEDURE 1. Lumbar epidural steroid injection under fluoroscopic guidance at the L3-4 level. (Fluoroscopy imaging was available in radiology department) 2. Lumbar epidurogram. ANESTHESIA: moderate sedation with intravenous Versed 2 mg ,and fentanyle 50 Mcg Sedation start time : 1420 Sedation end time : 1425 EBL: Minimal PROCEDURE INDICATION: The patient with low back pain and radiculitis symptoms unresponsive to conservative treatment. Fluoroscopy was used to optimize visualization of the needle placement and to maximize safety. PROCEDURE DESCRIPTION / TECHNIQUE: The patient was seen and identified in the preoperative area. Risks, benefits, complications including but not limited to infections ,bleeding ,allergic reaction to the medications ,nerve damage and not complete pain releife , and alternatives were discussed with the patient. The patient agreed to proceed with the procedure and signed the consent. IV was started, and vital signs were stable. Patient was taken to the OR and time out was completed. The patient was placed in the prone position on procedure table and a pillow was placed under the abdomen to reduce lumbar lordosis. The lumbosacral area was prepped and draped in the usual sterile fashion.ere closely monitored during the procedure. Conscious sedation was used during the procedure to decrease patients anxiety. Vital signs was monitered during the entire procedure. Using anterior-posterior fluoroscopy, the L3-4 interlaminar space was identified and the skin over this site was marked and then infiltrated with 1% lidocaine subcutaneously. Subsequently, a 20-gauge Tuohy epidural needle was inserted and advanced toward the epidural space using the ``Loss of resistance technique and guided by AP and lateral fluoroscopy. The correct needle position in the epidural space was verified with the injection of 2 mL of the water soluble contrast dye Isovue 200 contrast and observing an excellent epidurogram with the epidural spread of the dye, after negative aspiration for blood and CSF and in the absence of paresthesias. Again after negative aspiration, a 6 ml mixture containing 80 mg of Depo-medrol ( Preservetive Free ), and 2 ml of preservative free Normal Saline, and 2 ml of preservative free lidocaine 1% solution was injected and a washout of epidurogram was seen. Needle was withdrawn intact, skin was cleansed, and bandages were applied. COMPLICATIONS: None DISPOSITION / PLANS: The patient was placed in a supine position and transferred to the recovery area in a stable condition for observation. There was no evidence of lower extremity motor or sensory deficit after the procedure. Patient was discharged from the recovery room after meeting discharge criteria. Home discharge instructions were given to the patient by the staff. The patient was reexamined prior to discharge. The patient will schedule a follow up in the clinic in 2-4 weeks.
[2023-03-02 14:39] VITALS: RESP 16
--- NOTE | 2023-03-02 14:39 | FL ---
Intraoperative/procedural fluoroscopic services were provided for lumbar epidural steroid injection. Total fluoroscopy time is 3 seconds with a total of 1 submitted image to PACS. Total DAP [id number]. Ple ase see the operative note for further details.
[2023-03-02 14:48] VITALS: BP 140/83; PULSE 53
== END 2023-03-02 14:59 | disposition home or self-care (01) ==
LOC: ORPAIN 12:54
PROVIDERS: ATTEND Specialist
DX: M51.16 Intervertebral disc disorders with radiculopathy, lumbar region (principal); M48.061 Spinal stenosis, lumbar region without neurogenic claudication
CPT/HCPCS: 62323; J2250; J1030; J3010; Q9966

== ENCOUNTER → 2023-03-29 | Outpatient (CLI) | payer MEDICARE ==
--- NOTE | 2023-03-29 20:18 | CTL ---
EXAMINATION TYPE: CT Low Dose Lung DATE OF EXAM ORDERED: 03/29/2023 HISTORY: Long-term tobacco use. Lung cancer screening CT DLP: 92.[address] CTDI: 2.4 mGy Automated exposure control for dose reduction was used. SCREENING VISIT: Baseline. COMPARISON: None TECHNIQUE: Low dose computed tomography scan was performed through the chest at 1 mm thick sections a nd reconstructed images in multiple planes at 1 mm and [address] DIAGNOSTIC QUALITY: Satisfactory FINDINGS: LUNG NODULES: None. LUNGS: COPD: Severity: Mild Fibrosis: Severity: None Lymph nodes: None Other findings: None RIGHT PLEURAL SPACE: Effusion: None Calcification: None Thickening: None Pneumothorax: None LEFT PLEURAL SPACE: Effusion: None Calcification: None Thickening: None Pneumothorax: None HEART: Heart Size: Normal Coronary Calcification: None Pericardial Effusion: None OTHER FINDINGS: Upper abdomen: Visualized liver is heterogeneously hypodense consistent with diffuse fatty infiltrati on Bony thorax: [id number] multilevel spurring in the thoracic spine Supraclavicular region: None Other: None IMPRESSION: No suspicious nodules CT LUNG RAD AND CT CHEST RECOMMENDATION: Lung-Rad 1 Negative: Continue annual screening with LDCT in 12 months. S Modifier (other clinically significant findings): None
== END | disposition home or self-care (01) ==
LOC: RADCTMAIN 18:56
PROVIDERS: ATTEND Family Medicine
DX: Z12.2 Encounter for screening for malignant neoplasm of respiratory organs (principal); J44.9 Chronic obstructive pulmonary disease, unspecified; Z87.891 Personal history of nicotine dependence
CPT/HCPCS: 71271

== ENCOUNTER → 2023-11-29 | Outpatient (CLI) | payer MEDICARE ==
--- NOTE | 2023-11-29 14:25 | CT ---
EXAMINATION TYPE: CT lumbar spine wo con CT DLP: 599.2 mGycm, Automated exposure control for dose reduction was used. DATE OF EXAM: 11/29/2023 1:28 PM COMPARISON: 03/29/2023 10/23/2013.. CLINICAL INDICATION:Male, 58 years old with history of Z98.1 ARTHRODESIS STATUS; PHH, post-op TECHNIQUE: Multiple axial images were obtained from the midportion of T11 through the sacroiliac fadumo nts. Soft tissue and bone windows in coronal and sagittal planes were obtained and reviewed. Contrast used: mL of , (None, if empty). Oral contrast used: (None, if empty). FINDINGS: Alignment: There are 5 lumbar type vertebral bodies within normal alignment. Bone: There is degenerative changes throughout spine opacified formation disc space narrowing and fa cet joint arthropathy. Fixation hardware T11-T12 appears intact. The discectomy of T11-T12. No significant bony fusion at T11-T12. Discs: T12-L1: No spinal canal or neural foraminal stenosis is identified. L1-L2: No spinal canal or neural foraminal stenosis is identified. L2-L3: Facet joint arthropathy and disc bulging result with mild to moderate spinal canal stenosis an d mild bilateral neural foraminal stenosis. L3-L4: Disc bulge with facet joint arthropathy with moderate spinal canal stenosis and moderate bilat eral neural foraminal stenosis. L4-L5: Facet joint arthropathy and disc bulging result with mild spinal canal stenosis and severe joshua ateral neural foraminal stenosis. L5-S1: Facet joint arthropathy and disc bulging result with mild spinal canal stenosis and mild bilat eral neural foraminal stenosis. Other: Atherosclerosis of the arterial vasculature. Nonobstructing left renal calculus measuring 3 mm . IMPRESSION: 1. No evidence for spinal fracture. 2. Disc degeneration changes with severe bilateral L4-L5 neural foraminal stenosis and moderate bilat eral L3-L4 neural foraminal stenosis. 3. Fixation hardware present and intact. No significant osseous fusion at T11-T12.
== END | disposition home or self-care (01) ==
LOC: RADCTMAIN 13:14
PROVIDERS: ATTEND Neurological Surgery
DX: M51.36 Other intervertebral disc degeneration, lumbar region (principal); M48.061 Spinal stenosis, lumbar region without neurogenic claudication; M99.73 Connective tissue and disc stenosis of intervertebral foramina of lumbar region; Z98.1 Arthrodesis status
CPT/HCPCS: 72131

== ENCOUNTER → 2024-11-08 | Outpatient (CLI) | payer MEDICARE ==
--- NOTE | 2024-11-08 20:28 | MR ---
INDICATION: Patient age:Male; 59 years old; Reason for study: R26.0 ATAXIC GAIT; [facility]. COMPARISON: MRI brain 03/01/2021, 12/11/2019. TECHNIQUE: Multi planar, multi sequence imaging was performed through the brain. The patient was then given 9 cc of Gadobutrol intravenously and multi planar, T1 fat-saturation images were obtained. FINDINGS: The gomez-white junctions, ventricular system, basal cisterns appear unremarkable. Stable T2 hyperinte nse 8mm nonenhancing cyst adjacent to the frontal horn of the right lateral ventricle and anterior co mmissure. Age-appropriate cerebral volume. Diffusion-weighted imaging shows no evidence of restricted diffusion to suggest acute/subacute infarct. Intracranial arterial flow voids are maintained. Stable 9 mm nonenhancing T2 hyperintense cyst within the posterior pituitary gland. No FLAIR signal abnorma lities. The susceptibility weighted images do not reveal any evidence for micro-hemorrhage. After adm inistration of gadolinium, no abnormal enhancement is seen. The bone marrow signal is within normal limits. The globes are unremarkable. Mild mucosal thickening of the inferior right maxillary and superior left maxillary sinuses. IMPRESSION: 1. No evidence of acute/subacute infarct or abnormal enhancement. 2. 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 3. Stable nonenhancing 8 mm cyst adjacent to the frontal horn of the right lateral ventricle and ante rior commissure. [facility], , 11/08/2024 8:24 PM
== END | disposition home or self-care (01) ==
LOC: RADMRIMAIN 12:51
PROVIDERS: ATTEND Family Medicine
DX: R26.0 Ataxic gait (principal)
CPT/HCPCS: 70553; A9585

== ENCOUNTER → 2024-11-18 | Outpatient (CLI) | payer MEDICARE ==
--- NOTE | 2024-11-18 20:44 | MR ---
INDICATION: Patient age:Male; 59 years old; Reason for study: M47.816; [facility]. COMPARISONS: CT lumbar spine 11/29/2023, MRI lumbar spine 05/06/2022, 02/15/2021, MR thoracic spine 11/12, 03/01/2021. TECHNIQUE: Multi planar, multi sequence imaging was performed utilizing: T1-weighted, T2-weighted, a nd turbo inversion recovery imaging of the lumbar spine. The patient was not given contrast. FINDINGS: The lumbar vertebral bodies do have preserved heights and alignment. Postsurgical changes from posterior fusion involving the T11 and T12 vertebral bodies with disc spacer. There is an assoc iated right-sided laminectomy This creates a stability artifact which limits evaluation of these leve ls. Multilevel disc desiccation is present. Significant disc height loss identified at L4-L5. Multile angela type II Modic changes. The conus medullaris and the distal spinal cord do appear unremarkable wit h regards to their signal intensity and morphology. No abnormal STIR signal. T11-T12: Tiny central disc protrusion without significant effacement of the anterior thecal sac. No s ignificant central canal stenosis with the limitations from some stability artifact. No significant n eural foraminal stenosis. T12-L1: Broad-based disc age with mild effacement of anterior thecal sac. Bilateral facet arthropathy . No significant neural foraminal stenosis. L1-L2: No significant disc pathology is identified. The spinal canal and neural foramen are patent. Bilateral facet arthropathy. L2-L3: Broad-based disc bulge with bilateral facet of the contributing to mild central canal stenosi s. This is improved from prior exam. Mild bilateral neuroforaminal stenosis. Tiny right facet joint c yst measuring up to 3 mm (series 701, image 17). L3-L4: Broad-based disc bulge and ligamentum flavum buckling and bilateral facet of the contributed to mild central canal stenosis. This is improved from prior exam. Mild to moderate bilateral neurofor aminal stenosis. L4-L5: Broad-based disc bulge resulting in mild central canal stenosis. Bilateral facet arthropathy. Moderate to severe right and [id number] left neural foraminal stenosis. L5-S1: The intervertebral disc appears round on its contour posteriorly without significant mass eff ect upon the thecal sac. Facet joints are enlarged. Neural canals do remain patent. Other significant findings: Posterior right hepatic lobe subcentimeter T2 hyperintense focus likely r epresenting a cyst.. IMPRESSION: 1. Mild to moderate multilevel degenerative disc disease. The degree of spinal canal stenosis is sli ghtly improved from prior MR in 2021. 2. Multilevel facet arthropathy redemonstrated with varying degrees of neural foraminal stenosis whi ch is most pronounced at L4-L5 as described above. 3. Post surgical changes from thoracic spinal fusion T11-T12. [facility], , 11/18/2024 8:42 PM
== END | disposition home or self-care (01) ==
LOC: RADMRIMAIN 19:45
PROVIDERS: ATTEND Neurological Surgery
DX: M47.816 Spondylosis without myelopathy or radiculopathy, lumbar region (principal); M48.061 Spinal stenosis, lumbar region without neurogenic claudication; M51.369 Other intervertebral disc degeneration, lumbar region without mention of lumbar back pain or lower extremity pain; Z98.1 Arthrodesis status
CPT/HCPCS: 72148

== ENCOUNTER → 2025-01-09 | Outpatient (CLI) | payer MEDICARE ==
[2025-01-10 02:17] LABS: Basophils # (A) 0.09 X 10*3/uL (0.00-0.10); Basophils % (A) 1.2 %; Eosinophils # (A) 0.31 X 10*3/uL (0.04-0.35); Eosinophils % (A) 4.3 %; HCT 45.6 % (39.6-50.0); Lymphocytes # (A) 2.08 X 10*3/uL (0.90-5.00); Lymphocytes % (A) 28.6 %; MCH 29.3 pg (27.0-32.0); MCHC 32.9 g/dL (32.0-37.0); MCV 89.1 FL (80.0-97.0); Mean Platelet Volume 11.8 FL (9.5-12.2); Monocytes # (A) 0.72 X 10*3/uL (0.20-1.00); Monocytes % (A) 9.9 %; NRBC Per 100 WBC 0 X 10*3/uL (0.00-0.01); Neutrophils # (A) 4.04 X 10*3/uL (1.80-7.70); Neutrophils % (A) 55.5 %; Platelet Count 292 X 10*3/uL (140-440); RBC 5.12 X 10*6/uL (4.40-5.60); RDW 12.9 % (11.5-14.5); WBC 7.28 X 10*3/uL (4.50-10.00)
[2025-01-10 03:24] LABS: ALT 53 U/L (10-49); AST 24 U/L (14-35); Albumin 4.2 g/dL (3.8-4.9); Alkaline Phosphatase 72 U/L (41-126); BUN/Creat Ratio 16.89 Ratio (12.00-20.00); Blood Urea Nitrogen 15.2 mg/dL (9.0-27.0); Calcium 9.5 mg/dL (8.7-10.3); Carbon Dioxide 23.2 mmol/L (21.6-31.8); Chloride 107 mmol/L (96-109); Chol/HDL Ratio 5.53 Ratio; Globulin 2.1 g/dL (1.6-3.3); Glucose 113 mg/dL (70-110); LDL Cholesterol,Calculated 111.5 mg/dL (0.0-131.0); Potassium 4.3 mmol/L (3.5-5.5); Sodium 141 mmol/L (135-145); T4, Free (Free Thyroxine) 1.25 ng/dL (0.80-1.80); Total Bilirubin <0.2 mg/dL (0.3-1.2); Total Protein 6.3 g/dL (6.2-8.2)
== END | disposition home or self-care (01) ==
LOC: LABWHC1 15:57
PROVIDERS: ATTEND Family Medicine
DX: Z00.01 Encounter for general adult medical examination with abnormal findings (principal); Z13.6 Encounter for screening for cardiovascular disorders; E23.6 Other disorders of pituitary gland
CPT/HCPCS: 36415; 80053; 80061; 82306; 82533; 82671; 84144; 84146; 84402; 84439; 84443; 85025